=== PATIENT | male | born 1980 | race Caucasian/White ===

== ENCOUNTER → 2016-10-24 | Outpatient (CLI) | payer OTHER, MEDICAID ==
--- NOTE | 2016-10-24 18:34 | DX ---
AP Supine Abdomen Reason for Examination: Follow up renal stones, comparison April 05, 2016. Findings: Calcifications project over the lower poles of the kidneys bilaterally, not significantly changed. The bowel gas pattern is normal. No free air is identified on this supine study. Moderat e fecal material is seen scattered throughout the colon. No small bowel dilatation is identified. O sseous structures are negative for acute abnormality. Impression: Nephrolithiasis, not significantly changed.
== END ==
LOC: FIMAGING 12:34
DX: N20.0 Calculus of kidney (principal)

== ENCOUNTER 2017-05-07 18:10 | Emergency (ER) | payer OTHER, MEDICAID ==
[2017-05-07 18:22] VITALS: PULSE 77; TEMP 98.1
--- NOTE | 2017-05-07 19:40 | EDPHY ---
H & P Stated Complaint: L GREAT TOE /INGROWN NAIL HAS APPT WITH PODIATRY ON FRIDAY Source: Patient Exam Limitations: No limitations - Personal History Current Tetanus/Diphtheria Vaccine: Yes - Medical/Surgical History Hx Asthma: No Hx Chronic Respiratory Disease: No Hx Diabetes: No Hx Cardiac Disease: No Hx Renal Disease: No Hx Cirrhosis: No Hx Alcoholism: No Hx HIV/AIDS: No Hx Splenectomy or Spleen Trauma: No Other PMH: QUAD, SEPSIS 2009, UTI- PSEUDOMONAS 06/28,. Kidney stones, C. difficile, DVT, neurogenic bladder with chronic hawkins/DVT - Social History Smoking Status: Light smoker HPI/ROS: CHIEF COMPLAINT: Ingrown toenail HISTORY OF PRESENT ILLNESS: Patient complains of 2 days history of redness and swelling of the left great toe. Complete spinal cord injury from T10 down since 2009, thus he has no sensory complaints. He does have some purulence started yesterday. His home health nurse noticed this today and recommended that he be seen for this. He has an appointment on Friday with a paint department supervisor, but presents here for antibiotics as they could not see him any sooner. No fever or systemic complaints. No modifying factors. No other associated complaints. Tetanus up- to-date. REVIEW OF SYSTEMS: Ten systems reviewed and are negative unless otherwise noted in the HPI EXAMINATION General Appearance: Alert, no distress Cardiovascular: Pulses normal throughout. Symmetric DP pulses 2+. Brisk cap refill Neurological: A&O, baseline sensory with CSI at T10. strength symmetric Skin: Warm and dry, no rash. Superficial erythema with mild purulence of the left great toenail. Consistent with ingrown toenail. No phelon or paronychia. Extremities: baseline ROM Psychiatric: Mood and affect normal DIFFERENTIAL DIAGNOSES: Including but not limited to ingrown toenail, phelon, abscess, cellulitis, paronychia MDM: 7:35 p.m. Mild ingrown toenail on the left side. No cellulitis of the foot of the toe. No paronychia. No systemic illness. I will place him on antibiotic treatment. He has an appointment with a paint department supervisor on Friday for definitive care. He is comfortable this plan and discharged home stable condition. ED precautions discussed. ED Precautions: Worsening pain. Erythema, edema, cyanosis, pallor, paresthesia or anesthesia. SUPERVISION: This patient was independently evaluated without direct examination by the attending physician. Case was discussed with attending physician. (Ac Woo) Constitutional: Initial Vital Signs Temperature (C) 36.7 C 05/07/17 18:19 Heart Rate 77 05/07/17 18:19 Respiratory Rate 18 05/07/17 18:19 Blood Pressure 96/73 L 05/07/17 18:19 O2 Sat (%) 96 05/07/17 18:19 O2 Delivery Mode Room Air Allergies/Adverse Reactions: ceftazidime Allergy (Severe, Verified 05/07/17 18:18) Other-Enter Comments UNKNOWN ABX Allergy (Uncoded 05/07/17 18:18) Home Medications: Medication Instructions Recorded Baclofen [Baclofen 10 mg (*)] 10 mg PO QID 07/21/14 Docusate Sodium 100 mg PO HS 07/21/14 QUEtiapine FUMARATE [Seroquel 50 50 mg PO BID 07/21/14 mg (*)] Sertraline HCl [Zoloft 100mg (*)] 100 mg PO DAILY 07/21/14 Furosemide [Lasix 20 MG (*)] 20 mg PO DAILY 30 Days 11/25/14 Ascorbic Acid [Vitamin C 500 mg 500 mg PO BIDMEAL 06/08/15 (*)] Bisacodyl [Magic Bullet 10 mg] 10 mg [place] DAILY 06/08/15 Dimethicone [Remedy Dimethicone] 1 herman TP TID PRN 06/08/15 Loratadine/Pseudoephedrine 1 each PO DAILY PRN 06/08/15 [Claritin-D 24 Hour Tablet] Amoxicillin/Clavulanate Pot 875 mg PO BID #20 tab 05/07/17 [Augmentin 875 MG TAB (*)] Medical Decision Making ED Course/Re-evaluation: The patient was evaluated and managed by the physician psychology assistant. I have reviewed this chart and I agree with the findings and plan of care as documented , as indicated by my signature. I am the secondary supervising physician. ( Marilyn Garcia) Departure - Departure Disposition: Home, Routine, Self-Care Clinical Impression: Ingrown toenail Condition: Good Instructions: Ingrown Nail (ED) Additional Instructions: 1. Medications as prescribed to completion 2. Keep your appointment on Friday with paint department supervisor for definitive care 3. ER precautions as discussed Referrals: Ashlyn De La Rosa MD [Primary Care Provider] - As per Instructions Prescriptions: Amoxicillin/Clavulanate Pot [Augmentin 875 MG TAB (*)] 875 mg PO BID #20 tab
[2017-05-07 19:51] VITALS: BP 99/64; RESP 16; O2SAT 94
== END 2017-05-07 19:53 | disposition home or self-care (01) ==
DX: L60.0 Ingrowing nail (principal); F17.200 Nicotine dependence, unspecified, uncomplicated

== ENCOUNTER 2017-10-26 19:57 | Emergency (ER) | payer OTHER, MEDICAID ==
[2017-10-26] MEDS ORDERED: HYDROmorphONE/DILAUDID 1 MG/ML INJ ONE (21:27)
[2017-10-26 21:28] LABS: PLATELET COUNT 211 10^3/uL (150-400)
[2017-10-26] MEDS ORDERED: HYDROmorphONE/DILAUDID 1 MG/ML INJ IVP ONE ×2 (21:29→23:41)
[2017-10-26] MEDS ORDERED: ONDANSETRON 4 MG/2 ML VIAL ONE (21:34)
[2017-10-26] MEDS ORDERED: ONDANSETRON 4 MG/2 ML VIAL IVP ONE (21:36)
[2017-10-26] MEDS ORDERED: IOPAMIDOL (ISOVUE 370) 100 ML BTL IV ONE (21:52)
--- NOTE | 2017-10-26 22:59 | EDPHY ---
H & P Smoking Status: Former smoker Time Seen by Provider: 10/26/17 20:56 HPI/ROS: CHIEF COMPLAINT: Headache HISTORY OF PRESENT ILLNESS: 37-year-old male with a history of quadriplegia presents to the emergency department with sudden onset of severe headache that began 6 days ago. The patient states that it was rather of abrupt in onset although has been gradually getting worse. It is severe. He has no history of headaches. No reported trauma. No chest pain or difficulty breathing. Denies neck pain. Denies visual changes. No nausea or vomiting. REVIEW OF SYSTEMS: Constitutional: No fever, no chills. Eyes: No double or blurry vision. ENT: No sore throat. Respiratory: No cough, no shortness of breath. Cardiac: No chest pain. Gastrointestinal: No abdominal pain, vomiting or diarrhea. Genitourinary: No dysuria. Musculoskeletal: No neck or back pain. Skin: No rashes. Neurological: headache. (Shayy Tracey) Past Medical/Surgical History: C5-C6 quadriplegic, history of sepsis in 2009, urinary tract infections and neurogenic bladder with indwelling suprapubic catheter, C diff 2010, DVT with Luis Angel filters (Shayy Tracey) Social History: Single and lives independently (Shayy Tracey) Physical Exam: General Appearance: Alert, no distress. Mentating normally and answering questions appropriately. Eyes: Pupils equal and round. Extraocular motions are all intact. ENT: Mouth: Mucous membranes moist. Respiratory: No wheezing, rhonchi, or rales, lungs are clear to auscultation. Cardiovascular: Regular rate and rhythm. Gastrointestinal: Abdomen is soft and nontender, no masses, no rebound or guarding, bowel sounds normal. Neurological: Patient is alert and oriented x3. 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 He has no sensation or mobility of the lower extremities. Skin: Warm and dry, no rashes. Musculoskeletal: Nontender to palpate along the cervical, thoracic or lumbar spine. Neck is supple. Extremities: Full range of motion and no peripheral edema. Psychiatric: Patient is oriented X 3, there is no agitation. (Shayy Tracey) Constitutional: Initial Vital Signs Temperature (C) 36.9 C 10/26/17 20:01 Heart Rate 54 L 02/11/18 20:01 Respiratory Rate 18 10/26/17 20:01 Blood Pressure 148/93 H 10/26/17 20:01 O2 Sat (%) 95 10/26/17 20:01 O2 Delivery Mode Room Air O2 (L/minute) 2 Allergies/Adverse Reactions: ceftazidime Allergy (Severe, Verified 10/26/17 20:06) Other-Enter Comments UNKNOWN ABX Allergy (Uncoded 05/07/17 18:18) Home Medications: Medication Instructions Recorded Baclofen [Baclofen 10 mg (*)] 10 mg PO QID 07/21/14 Docusate Sodium 100 mg PO HS 07/21/14 QUEtiapine FUMARATE [Seroquel 50 50 mg PO BID 07/21/14 mg (*)] Sertraline HCl [Zoloft 100mg (*)] 100 mg PO DAILY 07/21/14 Furosemide [Lasix 20 MG (*)] 20 mg PO DAILY 30 Days tab 11/25/14 Ascorbic Acid [Vitamin C 500 mg 500 mg PO BIDMEAL 06/08/15 (*)] Bisacodyl [Magic Bullet 10 mg] 10 mg [place] DAILY 06/08/15 Dimethicone [Remedy Dimethicone] 1 herman TP TID PRN 06/08/15 Loratadine/Pseudoephedrine 1 each PO DAILY PRN 06/08/15 [Claritin-D 24 Hour Tablet] Medical Decision Making - Diagnostics Imaging: Discussed imaging studies w/ call or contact centre team leader Radiologist - Diagnostics Imaging Results: Imaging Impressions Head CT 10/26/17 21:35 Impression: Normal. CT Angiogram of the Brain Clinical Indications: Severe headache, quadriplegic. Evaluate for aneurysm . Technique: CT angiogram of the brain was performed with the uneventful intravenous administration of 85 mL Isovue-370 contrast. Multiplanar reconstructions including 3D reconstructions performed and evaluated on [employer] workstation in order to better evaluate the cheesh-na of [place] vessels. Images were manipulated by the radiologist at the computer workstation. Dose reduction techniques were utilized. Findings: Major vessels of the cheesh-na of [place] are adequately displayed, demonstrating no evidence of aneurysm, vascular malformation, flow-limiting stenosis, or occlusion. Bilateral cavernous internal carotid arteries and vertebrobasilar system demonstrates no evidence of flow-limiting stenosis, aneurysm, occlusion or dissection. Superior sagittal sinus, transverse sinuses, and major veins demonstrate no evidence of intraluminal thrombi. Impression: Negative CT angiogram of the brain. Results called and discussed with Shayy Tracey PA-C at 10/26/2017 22:55. Head CTA 10/26/17 21:35 Impression: Normal. CT Angiogram of the Brain Clinical Indications: Severe headache, quadriplegic. Evaluate for aneurysm . Technique: CT angiogram of the brain was performed with the uneventful intravenous administration of 85 mL Isovue-370 contrast. Multiplanar reconstructions including 3D reconstructions performed and evaluated on [employer] workstation in order to better evaluate the cheesh-na of [place] vessels. Images were manipulated by the radiologist at the computer workstation. Dose reduction techniques were utilized. Findings: Major vessels of the cheesh-na of [place] are adequately displayed, demonstrating no evidence of aneurysm, vascular malformation, flow-limiting stenosis, or occlusion. Bilateral cavernous internal carotid arteries and vertebrobasilar system demonstrates no evidence of flow-limiting stenosis, aneurysm, occlusion or dissection. Superior sagittal sinus, transverse sinuses, and major veins demonstrate no evidence of intraluminal thrombi. Impression: Negative CT angiogram of the brain. Results called and discussed with Shayy Tracey PA-C at 10/26/2017 22:55. ED Course/Re-evaluation: I evaluated this patient at 10:50 p.m.. This time he appeared comfortable. He was watching TV. He is not seem to be in any distress. His neck is supple. He does not have significant pain on flexion of his neck. He describes his headache as gradual in onset but escalating in intensity. He very specifically denied a thunderclap headache with maximum intensity at onset. I discussed doing a lumbar puncture. I described the procedure. He declines this procedure at this time. He has a negative CT noncontrast of the brain and a negative CTA of the brain. Please see physician assistant engineer Shayy Joe's dictation for further details regarding history and remaining emergency department course. (Azam Aguilar) The case was discussed with Dr. Azam Aguilar, secondary supervising physician, who also evaluated the patient. CT scan of the brain as well as CTA of the brain was normal. Patient received initially IV Dilaudid and was given IV Toradol and IV Decadron. Upon discharge, 12:30 a.m.: Patient was feeling much better. Headache has resolved. He would like to be discharged home. Patient was instructed to return to the emergency department immediately if he had any change in symptoms or felt worse in any way. (Shayy Tracey) Differential Diagnosis: Headache including but not limited to subarachnoid hemorrhage, migraine headache , tension headache and infectious causes such as meningitis, pharyngitis and sinusitis. (Shayy Tracey) - Data Points Laboratory Results: Laboratory Results 10/26/17 21:15 10/26/17 21:15 10/26/17 10/26/17 10/26/17 21:15 21:15 21:14 WBC 6.55 10^3/uL 10^3/uL (3.80-9.50) RBC 4.87 10^6/uL 10^6/uL (4.40-6.38) Hgb 13.6 g/dL L g/dL (13.7-17.5) POC Hgb 13.3 gm/dL L gm/dL (13.7-17.5) Hct 41.2 % % (40.0-51.0) POC Hct 39 % L % (40-51) MCV 84.6 fL fL (81.5-99.8) MCH 27.9 pg pg (27.9-34.1) MCHC 33.0 g/dL g/dL (32.4-36.7) RDW 15.4 % H % (11.5-15.2) Plt Count 211 10^3/uL 10^3/uL (150-400) MPV 10.0 fL fL (8.7-11.7) Neut % (Auto) 45.8 % % (39.3-74.2) Lymph % (Auto) 45.8 % H % (15.0-45.0) [place] % (Auto) 6.0 % % (4.5-13.0) Eos % (Auto) 2.0 % % (0.6-7.6) Baso % (Auto) 0.2 % L % (0.3-1.7) Nucleat RBC Rel Count 0.0 % % (0.0-0.2) Absolute Neuts (auto) 3.01 10^3/uL 10^3/uL (1.70-6.50) Absolute Lymphs (auto) 3.00 10^3/uL 10^3/uL (1.00-3.00) Absolute Monos (auto) 0.39 10^3/uL 10^3/uL (0.30-0.80) Absolute Eos (auto) 0.13 10^3/uL 10^3/uL (0.03-0.40) Absolute Basos (auto) 0.01 10^3/uL L 10^3/uL (0.02-0.10) Absolute Nucleated RBC 0.00 10^3/uL 10^3/uL (0-0.01) Immature Gran % 0.2 % % (0.0-1.1) Immature Gran # 0.01 10^3/uL 10^3/uL (0.00-0.10) POC Sodium 144 mEq/L mEq/L (135-145) Sodium 143 mEq/L mEq/L (135-145) POC Potassium 3.8 mEq/L mEq/L (3.3-5.0) Potassium 4.1 mEq/L mEq/L (3.5-5.2) POC Chloride 104 mEq/L mEq/L (97-110) Chloride 107 mEq/L mEq/L (97-110) Carbon Dioxide 24 mEq/l mEq/l (22-31) Anion Gap 12 mEq/L mEq/L (8-16) POC BUN 10 mg/dL mg/dL (7-23) BUN 11 mg/dL mg/dL (7-23) Creatinine 0.5 mg/dL L mg/dL (0.7-1.3) POC Creatinine 0.6 mg/dL L mg/dL (0.7-1.3) Estimated GFR > 60 Glucose 90 mg/dL mg/dL (70-100) POC Glucose 92 mg/dL mg/dL (70-100) Calcium 9.3 mg/dL mg/dL (8.5-10.4) Medications Given: Discontinued Medications Dexamethasone (Decadron Injection) 10 mg IVP EDNOW ONE Stop: 10/26/17 23:04 Last Admin: 10/26/17 23:22 Dose: 10 mg Hydromorphone HCl (Dilaudid) 0.5 mg IVP EDNOW ONE Stop: 10/26/17 21:30 Last Admin: 10/26/17 21:30 Dose: 0.5 mg Hydromorphone HCl (Dilaudid) 0.5 mg IVP EDNOW ONE Stop: 10/26/17 23:42 Last Admin: 10/27/17 00:04 Dose: 0.5 mg Ketorolac Tromethamine (Toradol) 30 mg IVP EDNOW ONE Stop: 10/26/17 23:04 Last Admin: 10/26/17 23:21 Dose: 30 mg Ondansetron HCl (Zofran) 4 mg IVP EDNOW ONE Stop: 10/26/17 21:37 Last Admin: 10/26/17 21:37 Dose: 4 mg Point of Care Test Results: 10/26/17 21:14 POC Sodium 144 POC Potassium 3.8 POC Chloride 104 POC BUN 10 POC Creatinine 0.6 L POC Glucose 92 Departure - Departure Disposition: Home, Routine, Self-Care Clinical Impression: Headache Qualifiers: Headache type: unspecified Headache chronicity pattern: acute headache Intractability: not intractable Qualified Code(s): R51 - Headache Condition: Good Instructions: Acute Headache (ED) Additional Instructions: Return to the emergency department immediately if you develop worsening headache , vomiting, altered mental status, or if you feel worse in any way. Referrals: Ashlyn De La Rosa MD [Primary Care Provider] - As per Instructions
[2017-10-26] MEDS ORDERED: KETOROLAC 30 MG/1 ML SDV IVP ONE (23:03)
[2017-10-26] MEDS ORDERED: DEXAMETHASONE 10 MG/ML VIAL IVP ONE (23:03)
[2017-10-27 00:58] VITALS: BP 111/72; PULSE 64; RESP 18; TEMP 97.9; O2SAT 96
== END 2017-10-27 00:57 | disposition home or self-care (01) ==
DX: R51 Headache (principal); Z87.891 Personal history of nicotine dependence
CPT/HCPCS: 70450; 70496; 96374; 96375; 96376; 99285; J1100; J1170; J1885; J2405; Q9967; 82947-QW

== ENCOUNTER 2017-10-29 11:49 | Emergency (ER) | payer OTHER, MEDICAID ==
--- NOTE | 2017-10-29 12:20 | EDPHY ---
H & P Stated Complaint: benoit x 1 week/seen in ed 10/26 pcp yesterday/not resolved Time Seen by Provider: 10/29/17 12:19 HPI/ROS: HPI: This is a 37-year-old male who presents with Chief Complaint: benoit x 1 week/seen in ed 10/26 pcp yesterday/not resolved Location: Behind both eyes Quality: Pressure Duration: 1 week Signs and Symptoms: no fever, no nausea, no vomiting, no photophobia, no noise sensitivity, no neck stiffness, no ear pain, no tinnitus, no nasal congestion, no sinus pressure, no weakness, no radiation, no vision changes, no aura Timing: Waxes and wane Severity: [id number] Context: Patient has a history of C5/C6 quadriplegia presents with complaints of continued pressure behind both eyes that is not relieved by the amitriptyline that he started last night by his primary care provider. Patient was seen in this emergency room on 10/26/2017 for similar complaints. Head CT and head CTA performed that showed no acute intracranial process including no sinusitis/aneurysm/infarct/mass. Patient reports that he had his eyes examined last year and wears glasses. He denies any nasal congestion/rhinorrhea/fever. He is able to sleep at night without difficulty. He is on chronic muscle relaxers due to his paraplegia. He saw his primary care doctor yesterday and will be seen by Neurology next week. Reports he is unable to feel anything from his neck down to his feet. Right-hand dominant. Modifying Factors: See above Comment: ROS: see HPI Constitutional: No fever, no chills, no weight loss Eyes: No blurred vision Respiratory: No shortness of breath, no cough Cardiovascular: No chest pain, no palpitations Gastrointestinal: No nausea, no vomiting, no diarrhea, no hematemesis, no blood in stool Genitourinary: No dysuria, no blood in urine Extremities: No myalgias, no edema Neurologic: No weakness, no numbness Skin: No rashes, no petechiae Hematologic: No bruising, no bleeding MEDICAL/SURGICAL/SOCIAL HISTORY: Medical history: c5-c6 QUAD, SEPSIS 2009, UTI- PSEUDOMONAS 06/28, Kidney stones , C. difficile - 2009, DVT, neurogenic bladder with chronic Hawkins Social history: Disabled. CONSTITUTIONAL: Extremely well-appearing adult white male, awake and alert, no obvious distress HEENT: Atraumatic and normocephalic, PERRL, EOMI. Wears glasses. Tympanic membranes clear. Oropharynx clear, no exudate and moist pink mucosa. Airway patent. No lymphadenopathy. No meningismus. Cardiovascular: Normal S1/S2, regular rate, regular rhythm, without murmur rub or gallop. PULMONARY/CHEST: Symmetrical and nontender. Clear to auscultation bilaterally. Good air movement. No accessory muscle usage. ABDOMEN: Soft, nondistended, nontender, no rebound, no guarding, no peritoneal signs, no masses or organomegaly. No CVAT. EXTREMITIES: 2/2 pulses, upper extremities strength 5/5, C5-C6 plegia; sitting in a motorized wheelchair. Wearing gloves. NEUROLOGICAL: no focal neuro deficits. GCS 15. SKIN: Warm and dry, no erythema. no rash. Good capillary refill. Source: Patient Exam Limitations: No limitations - Personal History Current Tetanus/Diphtheria Vaccine: Unsure - Medical/Surgical History Hx Asthma: No Hx Chronic Respiratory Disease: No Hx Diabetes: No Hx Cardiac Disease: No Hx Renal Disease: No Hx Cirrhosis: No Hx Alcoholism: No Hx HIV/AIDS: No Hx Splenectomy or Spleen Trauma: No Other PMH: c5-c6 QUAD, SEPSIS 2009, UTI- PSEUDOMONAS 06/28,. Kidney stones, C. difficile - 2009, DVT, neurogenic bladder with chronic hawkins - Social History Smoking Status: Former smoker Constitutional: Initial Vital Signs Temperature (C) 37 C 10/29/17 11:53 Heart Rate 84 10/29/17 11:53 Respiratory Rate 16 10/29/17 11:53 Blood Pressure 119/61 10/29/17 11:53 O2 Sat (%) 94 10/29/17 11:53 O2 Delivery Mode Room Air O2 (L/minute) 2 Allergies/Adverse Reactions: ceftazidime Allergy (Severe, Verified 10/29/17 11:52) Other-Enter Comments UNKNOWN ABX Allergy (Uncoded 05/07/17 18:18) Home Medications: Medication Instructions Recorded Baclofen [Baclofen 10 mg (*)] 10 mg PO QID 07/21/14 Docusate Sodium 100 mg PO HS 07/21/14 QUEtiapine FUMARATE [Seroquel 50 50 mg PO BID 07/21/14 mg (*)] Sertraline HCl [Zoloft 100mg (*)] 100 mg PO DAILY 07/21/14 Furosemide [Lasix 20 MG (*)] 20 mg PO DAILY 30 Days tab 11/25/14 Ascorbic Acid [Vitamin C 500 mg 500 mg PO BIDMEAL 06/08/15 (*)] Bisacodyl [Magic Bullet 10 mg] 10 mg [place] DAILY 06/08/15 Dimethicone [Remedy Dimethicone] 1 herman TP TID PRN 06/08/15 Loratadine/Pseudoephedrine 1 each PO DAILY PRN 06/08/15 [Claritin-D 24 Hour Tablet] Acet/Caffeine/Buta Fioricet 1 each PO Q6 PRN #12 tab 10/29/17 [Fioricet (*)] Amitriptyline HCl 10/29/17 Medical Decision Making - Diagnostics Imaging Results: Imaging Impressions Brain MRI 10/29/17 12:30 Impression: Nonspecific white matter FLAIR hyperintensities, which could be related to multiple sclerosis, sequela of migraine, vasculitis, or other etiology. Findings discussed with Kayley Maxwell PA-C, on October 29, 2017 at 1455. ED Course/Re-evaluation: Patient is requesting MRI of his brain; will order this due to continued headache. No neurological deficit. Given IV Decadron and IV Haldol with adequate relief 1400: Reassessed patient. Sitting upright in bed and sleeping soundly Called by radiologist who advised MRI shows no acute intracranial process. Does show some mild white matter changes consistent with migraine. Reassessed patient who reports that headache has completely resolved. Appointment with Neurology on Friday. He is very relieved of his MRI results. This patient was seen under the supervision of my secondary supervising physician. I evaluated care for this patient independently. Discussed this patient with Dr. Aguilar who did not see the patient. Differential Diagnosis: Headache including but not limited to subarachnoid hemorrhage, migraine headache , tension headache and infectious causes such as meningitis, pharyngitis and sinusitis. - Data Points Medications Given: Discontinued Medications Dexamethasone (Decadron Injection) 8 mg IVP EDNOW ONE Stop: 10/29/17 12:31 Last Admin: 10/29/17 13:30 Dose: 8 mg Haloperidol Lactate (Haldol Injection) 2.5 mg IVP EDNOW ONE Stop: 10/29/17 12:31 Last Admin: 10/29/17 13:30 Dose: 2.5 mg Lorazepam (Ativan Injection) 1 mg IVP EDNOW ONE Stop: 10/29/17 13:13 Last Admin: 10/29/17 13:43 Dose: 1 mg Departure - Departure Disposition: Home, Routine, Self-Care Clinical Impression: Migraine without aura Qualifiers: Status migrainosus presence: without status migrainosus Intractability: not intractable Qualified Code(s): G43.009 - Migraine without aura, not intractable , without status migrainosus Condition: Good Instructions: Migraine Headache (ED) Additional Instructions: Keep your follow-up appointment on Friday with Neurology as already scheduled. Use for Fioricet every 4-6 hours as needed for migraine headache. Drink a minimum 64 oz of fluid daily. Rest as much as possible until you are feeling better. Wear sunglasses while out in the sun. Referrals: PCP Not In,Dictionary [Medical Doctor] - As per Instructions Prescriptions: Acet/Caffeine/Buta Fioricet [Fioricet (*)] 1 each PO Q6 PRN #12 tab PRN Reason: Headache
[2017-10-29] MEDS ORDERED: HALOPERIDOL LACT 5 MG/ML INJ IVP ONE (12:30)
[2017-10-29] MEDS ORDERED: DEXAMETHASONE 4 MG/ML VIAL IVP ONE (12:30)
[2017-10-29] MEDS ORDERED: LORazepam 2 MG/ML INJ IVP ONE (13:12)
[2017-10-29 15:00] VITALS: RESP 18
[2017-10-29 16:09] VITALS: BP 150/89; PULSE 83; TEMP 98.8; O2SAT 92
== END 2017-10-29 16:33 | disposition home or self-care (01) ==
DX: G43.009 Migraine without aura, not intractable, without status migrainosus (principal); Z87.891 Personal history of nicotine dependence
CPT/HCPCS: 70551; 96374; 96375; 99285; J1100; J1630; J2060

== ENCOUNTER 2017-11-03 14:56 | Emergency (ER) | payer OTHER, MEDICAID ==
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
[2017-11-03] MEDS ORDERED: KETOROLAC 15 MG/1 ML SDV IVP/IM ONE (16:55)
[2017-11-03] MEDS ORDERED: NS 1,000 ML IV ONE (16:55)
[2017-11-03] MEDS ORDERED: DEXAMETHASONE 4 MG/ML VIAL IVP ONE (16:55)
[2017-11-03] MEDS ORDERED: HALOPERIDOL LACT 5 MG/ML INJ IVP ONE (16:55)
[2017-11-03 17:01] LABS: PLATELET COUNT 211 10^3/uL (150-400)
[2017-11-03 17:07] VITALS: RESP 12
[2017-11-03] MEDS ORDERED: IOPAMIDOL (ISOVUE 370) 100 ML BTL IV ONE (17:27)
[2017-11-03] MEDS ORDERED: METOCLOPRAMIDE 10 MG/2 ML VIAL IVP ONE (18:12)
[2017-11-03] MEDS ORDERED: DIAZEPAM 5 MG/ML 1 ML SYR IVP ONE (18:12)
[2017-11-03 19:33] VITALS: BP 153/94; PULSE 73; TEMP 98.6; O2SAT 94
== END 2017-11-03 20:07 | disposition home or self-care (01) ==
DX: G44.89 Other headache syndrome (principal); Z87.891 Personal history of nicotine dependence
CPT/HCPCS: 70498; 96374; 96375; 99285; J1100; J1630; J1885; J2765; J3360; Q9967

== ENCOUNTER 2017-12-31 16:09 | Inpatient (IN) | payer OTHER, MEDICAID ==
--- NOTE | 2017-12-31 16:47 | EDPHY ---
H & P Stated Complaint: Left leg DVT, sent by PCP. Time Seen by Provider: 12/31/17 16:30 HPI/ROS: CHIEF COMPLAINT: Left leg swelling, diagnosed with DVT as outpatient HISTORY OF PRESENT ILLNESS: The patient has a history of quadriplegia of from prior cervical injury. He presents to the ED after he was evaluated at his primary care provider's office with complaints of left leg swelling. The patient did have a prior history of DVT. He currently has a [place] filter. He is not anticoagulated. He has required thrombolytics therapy for management of thromboembolic events in the past. The patient has no sensation in his lower extremities chronically. He is wheelchair-bound. He denies any chest pain or shortness of breath. REVIEW OF SYSTEMS: A comprehensive 10 point review of systems is otherwise negative aside from elements mentioned in the history of present illness. Source: Patient Exam Limitations: No limitations - Personal History Current Tetanus Diphtheria and Acellular Pertussis (TDAP): Yes - Medical/Surgical History Hx Asthma: No Hx Chronic Respiratory Disease: No Hx Diabetes: No Hx Cardiac Disease: No Hx Renal Disease: No Hx Cirrhosis: No Hx Alcoholism: No Hx HIV/AIDS: No Hx Splenectomy or Spleen Trauma: No Other PMH: c5-c6 QUAD, SEPSIS 2009, UTI- PSEUDOMONAS 06/28,. Kidney stones, C. difficile - 2009, DVT, neurogenic bladder with chronic hawkins. IVC filter 2009. - Social History Smoking Status: Former smoker - Physical Exam Exam: General Appearance: Alert, no distress Eyes: Pupils equal and round no pallor or injection ENT, Mouth: Mucous membranes moist Respiratory: There are no retractions, lungs are clear to auscultation Cardiovascular: Regular rate and rhythm Gastrointestinal: Abdomen is soft and nontender, no masses, bowel sounds normal Neurological: Chronic upper and lower extremity weakness secondary to cervical spine injury Skin: Warm and dry, no rashes Musculoskeletal: Neck is supple nontender Extremities: Asymmetric swelling noted in the left leg, normal capillary refill , 2+ dorsalis pedis and posterior tibial pulse noted Constitutional: Initial Vital Signs Temperature (C) 36.5 C 12/31/17 16:15 Heart Rate 78 12/31/17 16:15 Respiratory Rate 16 12/31/17 16:15 Blood Pressure 100/70 12/31/17 16:15 O2 Sat (%) 98 12/31/17 16:15 O2 Delivery Mode Room Air Allergies/Adverse Reactions: ceftazidime Allergy (Severe, Verified 10/29/17 11:52) Other-Enter Comments UNKNOWN ABX Allergy (Uncoded 05/07/17 18:18) Home Medications: Medication Instructions Recorded Baclofen [Baclofen 10 mg (*)] 10 mg PO QID 07/21/14 Docusate Sodium 100 mg PO HS 07/21/14 QUEtiapine FUMARATE [Seroquel 50 50 mg PO BID 07/21/14 mg (*)] Sertraline HCl [Zoloft 100mg (*)] 100 mg PO DAILY 07/21/14 Furosemide [Lasix 20 MG (*)] 20 mg PO DAILY 30 Days tab 11/25/14 Ascorbic Acid [Vitamin C 500 mg 500 mg PO BIDMEAL 06/08/15 (*)] Bisacodyl [Magic Bullet 10 mg] 10 mg [place] DAILY 06/08/15 Dimethicone [Remedy Dimethicone] 1 herman TP TID PRN 06/08/15 Loratadine/Pseudoephedrine 1 each PO DAILY PRN 06/08/15 [Claritin-D 24 Hour Tablet] Acet/Caffeine/Buta Fioricet 1 each PO Q6 PRN #12 tab 10/29/17 [Fioricet (*)] Amitriptyline HCl 10/29/17 methylPREDNISolone [Medrol Dose 4 mg PO DAILY #1 ea 11/03/17 [facility]] Medical Decision Making - Diagnostics Imaging Results: Imaging Impressions Abdomen CT 12/31/17 17:01 Impression: 1. There is intraluminal thrombus involving the upper left common iliac vein ( at the level of a vascular stent), and extending into the IVC to the level of the IVC filter (L2-L3 level). There is no extrinsic mass identified. 2. Bilateral nonobstructive nephrolithiasis with areas of regional renal cortical scarring, right kidney greater than left. 3. Suprapubic cystostomy catheter. Findings were discussed with Chris Arriola MD at 18:11, on 12/31/2017. ED Course/Re-evaluation: I reviewed the patient's outpatient ultrasound. At that a recommendation of the radiologist a CT scan of the abdomen pelvis has been ordered which does demonstrate recurrent extensive clot noted throughout the IVC inferior to the filter. I reviewed the patient's CT scan with interventional radiologist Dr. Tena who would like to evaluate the patient for likely thrombolysis tomorrow. She has requested the patient be admitted for IV heparin and be made NPO after midnight. Consultation was made with the hospitalist service for admission. I spoke with Dr. Bourgeois from the hospitalist service who will admit the patient. Differential Diagnosis: Differential diagnosis considered includes DVT, arterial thrombosis, compartment syndrome Departure - Departure Disposition: [facility] Inpatient Acute Clinical Impression: DVT (deep venous thrombosis), Paraplegia Condition: Fair Referrals: Ashlyn De La Rosa MD [Primary Care Provider] - As per Instructions
[2017-12-31] MEDS ORDERED: IOPAMIDOL (ISOVUE-300) 100 ML BTL ONE (17:16)
[2017-12-31] MEDS ORDERED: HEPARIN/DEXTROSE 500 ML IV ONE (18:26)
[2017-12-31] MEDS ORDERED: HEPARIN 10,000 UNIT/10 ML MDV (1,000 UNIT/ML) IVP ONE (18:26)
[2017-12-31] MEDS ORDERED: ACETAMINOPHEN 325 MG TAB PO PRN (18:42)
[2017-12-31] MEDS ORDERED: ONDANSETRON DISINTEGRATING 4 MG TAB PO PRN (18:42)
[2017-12-31] MEDS ORDERED: HEPARIN/DEXTROSE 500 ML IV SCH (18:45)
[2017-12-31] MEDS: HEPARIN 10,000 UNIT/10 ML MDV (1,000 UNIT/ML) IVP PRN (18:48)
--- NOTE | 2017-12-31 18:50 | PDGENHP ---
History and Physical - Chief Complaint left leg swelling - History of Present Illness The patient has a history of long standing quadriplegia from prior cervical injury. He presents after he was evaluated at his primary care provider's office with complaints of left leg swelling. The patient did have a prior history of DVT. He currently has a [place] filter. He is not anticoagulated. He has required thrombolytics therapy for management of thromboembolic events in the past. The patient has no sensation in his lower extremities chronically. He is wheelchair-bound. He denies any chest pain or shortness of breath. An ultrasound of the left Lower extremity showed significant clotting. A CT Abd and Pelvis was recommended and this shows clot extending from the common iliac vein and extending into the IVC. The E.D. room called Dr. Tena and Heparin has been started. He is being admitted for anticoagulation and for likely thrombolysis with Dr. Tena tomorrw. PMH: c5-c6 QUAD, SEPSIS 2009, UTI- PSEUDOMONAS 06/28,. Kidney stones, C. difficile - 2009, DVT, neurogenic bladder with chronic suprapubic hawkins. IVC filter 2009. PSHx: suprapubic hawkins SocHx:no tobacco, ETOH, or illicits FmHx: non hx of clots Data: CBC and BMP reviewed, obtained today LLE Ultrasound and CT abd/pelvis reviewed History Information - Allergies/Home Medication List Allergies/Adverse Reactions: ceftazidime Allergy (Severe, Verified 10/29/17 11:52) Other-Enter Comments UNKNOWN ABX Allergy (Uncoded 05/07/17 18:18) Home Medications: Baclofen [Baclofen 10 mg (*)] 10 mg PO QID 07/21/14 [Last Taken 12/31/17 18:00] Docusate Sodium 100 mg PO HS 07/21/14 [Last Taken 12/30/17] QUEtiapine FUMARATE [Seroquel 50 mg (*)] 50 mg PO BID 07/21/14 [Last Taken 12/31 09:00] Sertraline HCl [Zoloft 100mg (*)] 100 mg PO DAILY 07/21/14 [Last Taken 12/31/17] Ascorbic Acid [Vitamin C 500 mg (*)] 1,000 mg PO DAILY 06/08/15 [Last Taken ] Bisacodyl [Magic Bullet 10 mg] 10 mg OR DAILY 06/08/15 [Last Taken 12/31/17] Dimethicone [Remedy Dimethicone] 1 herman TP TID PRN 06/08/15 [Last Taken 12/30/17] Loratadine/Pseudoephedrine [Claritin-D 24 Hour Tablet] 1 each PO DAILY PRN 06/08 [Last Taken 12/31/17] Amitriptyline HCl [Elavil 10 mg (*)] 10 mg PO HS 10/29/17 [Last Taken 12/30/17] Codeine Phosphate/Guaifenesin [Robafen AC Oral Solution] 10 ml PO Q4H PRN [Last Taken 12/31/17] Herbals/Supplements -Info Only 1 ea PO DAILY 12/31/17 [Last Taken 12/31/17] Naproxen 500 mg PO BID PRN 12/31/17 [Last Taken 1 Week Ago ~12/24/17] I have personally reviewed and updated: medical history, social history - Social History Smoking Status: Former smoker Review of Systems Review of Systems: ROS: 10pt was reviewed & negative except for what was stated in HPI & below Physical Exam Physical Exam: Temp Pulse Resp BP Pulse Ox 36.5 C 67 18 126/80 H 97 12/31/17 16:15 12/31/17 18:00 12/31/17 18:00 12/31/17 18:00 12/31/17 18:00 Constitutional: no apparent distress Eyes: PERRL, EOMI Ears, Nose, Mouth, Throat: moist mucous membranes, hearing normal Cardiovascular: regular rate and rhythym, edema (left lower extremity edema extending to thigh) Respiratory: no respiratory distress Gastrointestinal: normoactive bowel sounds, soft, non-tender abdomen Skin: warm Neurologic: AAOx3 Psychiatric: interacting appropriately, not anxious, not encephalopathic Lymph, Heme, Immunologic: No petechiae Lab Data & Imaging Review 12/31/17 16:55 Assessment & Plan Assessment: #Extensive LLE DVT (deep venous thrombosis) extending into the IVC filter (Acute ) #LLE swelling due to the DVT #Tetraplegia #Wheelchair bound #Neurogenic bladder/bowel #Suprapubic Hawkins Plan: IV Heparin NPO at midnight Thrombolysis with IR tomorrow He will need lifelong AC. He does not want to be on Warfarin Bowel regime
[2017-12-31 18:53] LABS: PLATELET COUNT 250 10^3/uL (150-400)
[2017-12-31 19:15] LABS: INR 1.27 (0.83-1.16); PROTIME(PATIENT) 16.1 SEC (12.0-15.0)
[2017-12-31] MEDS ORDERED: LORATADINE PO PRN (20:22)
[2017-12-31] MEDS ORDERED: PSEUDOEPHEDRINE PO PRN (20:22)
[2017-12-31] MEDS ORDERED: guaiFENesin/CODEINE PHOS 10 ML UDCUP PO PRN (20:22)
[2017-12-31] MEDS ORDERED: DIMETHICONE TP PRN (20:22)
[2017-12-31] MEDS: DOCUSATE SODIUM 100 MG CAP PO SCH (22:57)
[2017-12-31] MEDS: QUEtiapine FUMARATE 50 MG TAB PO SCH (22:57)
[2017-12-31] MEDS: BACLOFEN 10 MG TAB PO SCH (22:58)
[2017-12-31] MEDS: AMITRIPTYLINE HCL 10 MG TAB PO SCH (22:58)
[2017-12-31] MEDS ORDERED: NS 1,000 ML IV SCH (23:15)
[2017-12-31] MEDS: diphenhydrAMINE 25 MG CAP PO PRN (23:29)
--- NOTE | 2018-01-01 05:24 | PDMN ---
Medical Necessity Medical necessity: Pt meets IP criteria per MD; est los >2 mn for eval/tx of extensive LLE DVT; admit for further monitoring, thrombolysis, IV Heparin, IV pain meds & IVFs; hx quadriplegia, cdiff, neurogenic bladder/bowel & chronic suprapubic hawkins; per H&P & order 12/31/17
[2018-01-01] MEDS: BACLOFEN 10 MG TAB PO SCH ×3 (05:31→20:23)
[2018-01-01 06:16] LABS: PLATELET COUNT 210 10^3/uL (150-400)
[2018-01-01] MEDS: ONDANSETRON 4 MG/2 ML VIAL IVP PRN ×2 (06:33→21:16)
[2018-01-01] MEDS ORDERED: Herbals/Supplements -Info Only PO SCH (09:00)
[2018-01-01] MEDS: QUEtiapine FUMARATE 50 MG TAB PO SCH ×2 (09:34→21:05)
[2018-01-01] MEDS: ASCORBIC ACID 500 MG TAB PO SCH (09:34)
[2018-01-01] MEDS: FUROSEMIDE 20 MG TAB PO SCH (09:34)
[2018-01-01] MEDS: SERTRALINE HCL 100 MG TAB PO SCH (09:35)
--- NOTE | 2018-01-01 10:19 | HOSPPROG ---
Hospitalist Progress Note Assessment/Plan: 37 yo M w quadriplegia, january thurner w L iliac vein stent here w recurrent LLE DVT DVT: has filter and previous dvt, iliac stent IR consulted for catheter directed thrombolysis on hepain GTT limb well perfused no resp distress h/o cdiff: noted, not on abx quadriplegia: air mattress PT and OT nephrolithiasis: no sx, follow urinary retention: has foly proph: anticoagulated dispo: inpt Subjective: case d/w dr stacy. wishes to proceed w catheter directed thrombolysis Objective: Vital Signs Temp Pulse Resp BP Pulse Ox 36.6 C 71 18 117/76 95 01/01/18 04:50 01/01/18 04:50 01/01/18 04:50 01/01/18 04:50 01/01/18 04:50 Laboratory Results 01/01/18 06:08 01/01/18 06:08 12/31/17 01/01/18 01/02/18 05:59 05:59 05:59 Intake Total 690 Output Total 850 Balance -850 690 PT 16.1 SEC (12.0-15.0) H 12/31/17 16:55 INR 1.27 (0.83-1.16) H 12/31/17 16:55 - Physical Exam Constitutional: no apparent distress, appears nourished Eyes: PERRL, anicteric sclera Ears, Nose, Mouth, Throat: moist mucous membranes, hearing normal Cardiovascular: regular rate and rhythym, no murmur, rub, or gallop Respiratory: no respiratory distress, no rales or rhonchi Gastrointestinal: normoactive bowel sounds, soft, non-tender abdomen Genitourinary: no bladder fullness, hawkins in urethra Skin: warm, normal color, mottled Musculoskeletal: other (LLE edema), No full muscle strength Neurologic: AAOx3, sensation intact bilaterally ICD10 Worksheet Patient Problems: Problems Problem Status Onset DVT (deep venous thrombosis) Acute Paraplegia Acute C. difficile diarrhea Acute 10/30/14 Headache Acute Hydronephrosis of right kidney Acute Kidney stone Acute UTI (urinary tract infection) Acute
[2018-01-01] MEDS: HEPARIN 10,000 UNIT/10 ML MDV (1,000 UNIT/ML) IVP PRN (11:02)
[2018-01-01] MEDS: BISACODYL 10 MG SUPP PR SCH (13:15)
[2018-01-01] MEDS ORDERED: GLUCAGON HCL 1 MG VIAL IVP PRN (14:44)
[2018-01-01] MEDS ORDERED: FLUMAZENIL 0.5 MG/5 ML MDV IVP PRN (14:44)
[2018-01-01] MEDS ORDERED: MEPERIDINE 25 MG/ML SYR IVP PRN (14:44)
[2018-01-01] MEDS ORDERED: HEPARIN 10,000 UNIT/10 ML MDV (1,000 UNIT/ML) IVP PRN (14:44)
[2018-01-01] MEDS ORDERED: PROTAMINE SULFATE 50 MG/5 ML VIAL IVP PRN (14:44)
[2018-01-01] MEDS ORDERED: NALOXONE HCL 0.4 MG/ML INJ IVP PRN (14:44)
[2018-01-01] MEDS ORDERED: MIDAZOLAM 2 MG/2 ML VIAL IVP PRN (14:44)
[2018-01-01] MEDS ORDERED: fentaNYL 100 MCG/2 ML INJ IVP PRN (14:44)
[2018-01-01] MEDS ORDERED: ALTEPLASE 2 MG VIAL IVP PRN (14:44)
--- NOTE | 2018-01-01 15:27 | PDGENHP ---
History & Physical Chief Complaint: LLE edema History of Present Illness: H/o extensive DVT, May Thurner, quadraplegia. Thrombolysis, left CIV stenting in 2014. Discontinued OAC last year. P/w leg edema since last Friday. Imaging shows iliofemoropopliteal occlusive thrombus with non occlusive extension to cava below IVC filter. Pt agreeable to CDT today via left popliteal access. Relevant Physical Exam: assym lle edema, good pulses, no skin changes Cardiorespiratory Assessment: rrr, nl wob
--- NOTE | 2018-01-01 15:29 | PDPROPOC ---
Sedation Plan of Care ASA Classification: ASA 3 Planned drugs: fentanyl, midazolam Mallampati Score: Class 2 Mallampati Reference Image:
[2018-01-01] MEDS ORDERED: IOPAMIDOL (ISOVUE-300) 100 ML BTL ONE (16:08)
[2018-01-01] MEDS ORDERED: LIDOCAINE 1% 300 MG/30 ML SDV ONE (16:09)
[2018-01-01] MEDS ORDERED: ALTEPLASE 5 MG in NS 100 ML IV ONE (18:00)
--- NOTE | 2018-01-01 18:09 | PDRADPN ---
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 Acutely thrombosed L common femoral vein accessed antegrade. Easy traversal of iliofemoral thrombosis c/w acute clot. Clot extends well into the cava and into filter cone. A 23cm EKOS thrombolysis catheter was placed across iliocaval segments and tPa initiated at 0.5 mg/hr. Inf/Abcess present in the surg proc area at time of surgery?: No EBL: Minimal Complications: none
[2018-01-01] MEDS ORDERED: HEPARIN/DEXTROSE 500 ML IV SCH (19:00)
[2018-01-01 19:50] LABS: PLATELET COUNT 209 10^3/uL (150-400)
[2018-01-01] MEDS: DOCUSATE SODIUM 100 MG CAP PO SCH (21:00)
[2018-01-01] MEDS: AMITRIPTYLINE HCL 10 MG TAB PO SCH (21:05)
[2018-01-02] MEDS: BACLOFEN 10 MG TAB PO SCH ×5 (00:08→20:44)
[2018-01-02] MEDS: ALTEPLASE 5 MG in NS 100 ML IV SCH ×2 (00:22→12:24)
[2018-01-02] MEDS: diphenhydrAMINE 25 MG CAP PO PRN ×2 (02:28→20:44)
[2018-01-02 06:55] LABS: PLATELET COUNT 214 10^3/uL (150-400)
--- NOTE | 2018-01-02 09:46 | ASMTCASEMG ---
Living Arrangements What is your living Answers: Alone arrangement? Who do you live with? Type Of Residence What kind of residence do Answers: Apartment you live in? Discharge Plan Comments Coordination Status Comments Notes: Patient is a 37yo single male who was admitted for a left leg DVT. Patient has a hx of standing quadriplegia from prior cervical injury and is wheelchair bound. Patient's initial symptom was left leg swelling. No orders for therapies currently. D/C plan TBD. CM will follow. Date Signed: 01/02/2018 09:45 AM Electronically Signed By:Zoe Waters LCSW
[2018-01-02] MEDS: SERTRALINE HCL 100 MG TAB PO SCH (10:09)
[2018-01-02] MEDS: FUROSEMIDE 20 MG TAB PO SCH (10:16)
[2018-01-02] MEDS: QUEtiapine FUMARATE 50 MG TAB PO SCH ×2 (10:18→20:44)
[2018-01-02] MEDS: ASCORBIC ACID 500 MG TAB PO SCH (10:18)
[2018-01-02] MEDS: BISACODYL 10 MG SUPP PR SCH (10:19)
[2018-01-02] MEDS ORDERED: MEPERIDINE 25 MG/ML SYR IVP PRN (16:21)
[2018-01-02] MEDS ORDERED: HEPARIN 10,000 UNIT/10 ML MDV (1,000 UNIT/ML) IVP PRN (16:21)
[2018-01-02] MEDS ORDERED: ALTEPLASE 2 MG VIAL IVP PRN (16:21)
[2018-01-02] MEDS ORDERED: MIDAZOLAM 2 MG/2 ML VIAL IVP PRN (16:21)
[2018-01-02] MEDS ORDERED: GLUCAGON HCL 1 MG VIAL IVP PRN (16:21)
[2018-01-02] MEDS ORDERED: fentaNYL 100 MCG/2 ML INJ IVP PRN (16:21)
[2018-01-02] MEDS ORDERED: NALOXONE HCL 0.4 MG/ML INJ IVP PRN (16:21)
[2018-01-02] MEDS ORDERED: FLUMAZENIL 0.5 MG/5 ML MDV IVP PRN (16:21)
[2018-01-02] MEDS ORDERED: PROTAMINE SULFATE 50 MG/5 ML VIAL IVP PRN (16:21)
[2018-01-02] MEDS ORDERED: FLUMAZENIL 0.5 MG/5 ML MDV IVP ONE (16:24)
[2018-01-02] MEDS ORDERED: NALOXONE HCL 0.4 MG/ML INJ ONE (16:24)
[2018-01-02] MEDS ORDERED: fentaNYL 100 MCG/2 ML INJ ONE (16:25)
[2018-01-02] MEDS ORDERED: MIDAZOLAM 2 MG/2 ML VIAL ONE (16:25)
--- NOTE | 2018-01-02 16:43 | HOSPPROG ---
Hospitalist Progress Note Assessment/Plan: 37 yo M w quadriplegia, may thurner w L iliac vein stent here w recurrent LLE DVT DVT: has filter and previous dvt, iliac stent IR consulted for catheter directed thrombolysis on hepain GTT limb well perfused no resp distress h/o cdiff: noted, not on abx quadriplegia: air mattress PT and OT nephrolithiasis: no sx, follow urinary retention: has foly proph: anticoagulated dispo: inpt Subjective: IN IR for catheter thrombectomy, unable to be seen by me Objective: Vital Signs Temp Pulse Resp BP Pulse Ox 37.3 C 62 15 101/52 L 95 01/02/18 02:03 01/02/18 05:59 01/02/18 05:59 01/02/18 05:59 01/02/18 05:59 Laboratory Results 01/02/18 04:20 01/01/18 19:42 01/01/18 01/02/18 01/03/18 05:59 05:59 05:59 Intake Total 2650 Output Total 850 2050 750 Balance -850 600 -750 PT 16.1 SEC (12.0-15.0) H 12/31/17 16:55 INR 1.27 (0.83-1.16) H 12/31/17 16:55 ICD10 Worksheet Patient Problems: Problems Problem Status Onset DVT (deep venous thrombosis) Acute Paraplegia Acute C. difficile diarrhea Acute 10/30/14 Headache Acute Hydronephrosis of right kidney Acute Kidney stone Acute UTI (urinary tract infection) Acute
--- NOTE | 2018-01-02 18:13 | PDRADPN ---
Radiology Procedure Note Date of Procedure: 01/02/18 Radiologist: Adela eTna Anesthesia: IV Sedation Pre-op Diagnosis: LLE DVT Post-op Diagnosis: same Indication: TPA lysis follow up Procedure: venogram and angioplasty Finding(s): Continued moderate amount of clot in iliocaval vessels. There is antegrade flow. Inf/Abcess present in the surg proc area at time of surgery?: No Complications: none
[2018-01-02] MEDS: AMITRIPTYLINE HCL 10 MG TAB PO SCH (20:45)
[2018-01-02] MEDS: DOCUSATE SODIUM 100 MG CAP PO SCH (20:45)
[2018-01-02] MEDS ORDERED: ZOLPIDEM TARTRATE 5 MG TAB PO ONE (23:32)
[2018-01-03] MEDS: ALTEPLASE 5 MG in NS 100 ML IV SCH ×2 (00:12→09:53)
[2018-01-03] MEDS: BACLOFEN 10 MG TAB PO SCH ×4 (05:54→21:23)
[2018-01-03] MEDS: BISACODYL 10 MG SUPP PR SCH (09:15)
[2018-01-03] MEDS: FUROSEMIDE 20 MG TAB PO SCH ×2 (09:15→09:49)
[2018-01-03] MEDS: ASCORBIC ACID 500 MG TAB PO SCH ×2 (09:15→09:49)
[2018-01-03] MEDS: QUEtiapine FUMARATE 50 MG TAB PO SCH ×3 (09:16→21:22)
[2018-01-03] MEDS: SERTRALINE HCL 100 MG TAB PO SCH ×2 (09:16→09:49)
[2018-01-03] MEDS: ONDANSETRON 4 MG/2 ML VIAL IVP PRN (10:19)
--- NOTE | 2018-01-03 11:20 | PDINTPN ---
Drain [employer] Progress Note Assessment/Plan: Assessment/plan: 37 M quadraplegic with hx DVT, IVC filter found to have acute DVT up to filter so treated with lytics. Initial response only partial. Also with migraines, muscle spasticity. * DVT- remains on TPA therefore needs to remain flat and avoid NSIADs (he requested). Back to IR today for additional look. Will need intermediate frame tender anticoagulation plan * Spasticity- should be able to use his usual home regimen unless contraindicated by TPA. Discussed with Mom and patient in detail at bedside. * Migraine- resolved 01/03/18 11:20 Subjective: complaining about timing of meds, Objective: Vital Signs Temp Pulse Resp BP Pulse Ox 36.8 C 65 18 124/64 H 96 01/03/18 08:00 01/03/18 08:00 01/03/18 08:00 01/03/18 08:00 01/03/18 08:00 Laboratory Results 01/02/18 04:20 01/01/18 19:42 01/02/18 01/03/18 01/04/18 05:59 05:59 05:59 Intake Total 2650 985 Output Total 2050 2300 Balance 600 -1315 PT 16.1 SEC (12.0-15.0) H 12/31/17 16:55 INR 1.27 (0.83-1.16) H 12/31/17 16:55 Physical Exam - Physical Exam General Appearance: alert, no apparent distress EENT: PERRL/EOMI Neck: supple Respiratory: lungs clear, normal breath sounds, No respiratory distress, No accessory muscle use Cardiac/Chest: regular rate, rhythm, No edema Abdomen: non-tender, soft, No distended Skin: normal color, warm/dry, No cyanosis Lymphatic: no adenopathy Extremities: No pedal edema Neuro/Psych: alert, normal mood/affect, oriented x 3 ICD10 Worksheet Patient Problems: Problems Problem Status Onset DVT (deep venous thrombosis) Acute Paraplegia Acute C. difficile diarrhea Acute 10/30/14 Headache Acute Hydronephrosis of right kidney Acute Kidney stone Acute UTI (urinary tract infection) Acute
--- NOTE | 2018-01-03 11:47 | HOSPPROG ---
Hospitalist Progress Note Assessment/Plan: 37 yo M w quadriplegia, january thurner w L iliac vein stent here w recurrent LLE DVT DVT: has filter and previous dvt, iliac stent IR in midst of catheter directed thrombolysis fibrinogen OK on hepain GTT limb well perfused no resp distress refulx: add famotidine h/o cdiff: noted, not on abx quadriplegia: air mattress PT and OT nephrolithiasis: no sx, follow urinary retention: has foly proph: anticoagulated dispo: inpt Subjective: case d/w dr stephenson. plan to return to IR today Objective: Vital Signs Temp Pulse Resp BP Pulse Ox 36.8 C 80 14 113/65 95 01/03/18 08:00 01/03/18 10:00 01/03/18 10:00 01/03/18 10:00 01/03/18 10:00 Laboratory Results 01/02/18 04:20 01/01/18 19:42 01/02/18 01/03/18 01/04/18 05:59 05:59 05:59 Intake Total 2650 985 Output Total 2050 2300 Balance 600 -1315 PT 16.1 SEC (12.0-15.0) H 12/31/17 16:55 INR 1.27 (0.83-1.16) H 12/31/17 16:55 - Physical Exam Constitutional: no apparent distress, appears nourished Eyes: PERRL, anicteric sclera Ears, Nose, Mouth, Throat: hearing normal, no oral mucosal ulcers Cardiovascular: regular rate and rhythym, no murmur, rub, or gallop Respiratory: no respiratory distress, no rales or rhonchi Gastrointestinal: normoactive bowel sounds, soft, non-tender abdomen Genitourinary: No hawkins in urethra Skin: warm, normal color Musculoskeletal: No full muscle strength Neurologic: AAOx3 ICD10 Worksheet Patient Problems: Problems Problem Status Onset DVT (deep venous thrombosis) Acute Paraplegia Acute C. difficile diarrhea Acute 10/30/14 Headache Acute Hydronephrosis of right kidney Acute Kidney stone Acute UTI (urinary tract infection) Acute
[2018-01-03] MEDS: FAMOTIDINE 20 MG/NACL 50 ML IV SCH ×2 (12:02→21:11)
[2018-01-03] MEDS ORDERED: NALOXONE HCL 0.4 MG/ML INJ ONE (12:12)
[2018-01-03] MEDS ORDERED: FLUMAZENIL 0.5 MG/5 ML MDV IVP ONE (12:12)
[2018-01-03] MEDS ORDERED: MIDAZOLAM 2 MG/2 ML VIAL ONE (12:12)
[2018-01-03] MEDS ORDERED: fentaNYL 100 MCG/2 ML INJ ONE (12:12)
[2018-01-03] MEDS ORDERED: GLUCAGON HCL 1 MG VIAL IVP PRN (12:15)
[2018-01-03] MEDS ORDERED: FLUMAZENIL 0.5 MG/5 ML MDV IVP PRN (12:15)
[2018-01-03] MEDS ORDERED: PROTAMINE SULFATE 50 MG/5 ML VIAL IVP PRN (12:15)
[2018-01-03] MEDS ORDERED: ALTEPLASE 2 MG VIAL IVP PRN (12:15)
[2018-01-03] MEDS ORDERED: MEPERIDINE 25 MG/ML SYR IVP PRN (12:15)
[2018-01-03] MEDS ORDERED: MIDAZOLAM 2 MG/2 ML VIAL IVP PRN (12:15)
[2018-01-03] MEDS ORDERED: fentaNYL 100 MCG/2 ML INJ IVP PRN (12:15)
[2018-01-03] MEDS ORDERED: NALOXONE HCL 0.4 MG/ML INJ IVP PRN (12:15)
[2018-01-03] MEDS ORDERED: HEPARIN 10,000 UNIT/10 ML MDV (1,000 UNIT/ML) IVP PRN (12:15)
[2018-01-03] MEDS ORDERED: IOPAMIDOL (ISOVUE-300) 100 ML BTL ONE (13:26)
[2018-01-03] MEDS ORDERED: ATROPINE SULFATE 1 MG/ML VIAL ONE (14:05)
[2018-01-03] MEDS: HEPARIN/DEXTROSE 500 ML IV SCH (14:37)
--- NOTE | 2018-01-03 14:58 | PDRADPN ---
Radiology Procedure Note Date of Procedure: 01/03/18 Radiologist: Anjel Sotomayor Anesthesia: IV Sedation Pre-op Diagnosis: f/u thrombolysis Post-op Diagnosis: same Indication: leg edema, extensive DVT Procedure: angioplasty, mechanical thrombectomy, stenting Finding(s): extensive residual thrombus in cava and left CIV following 48hrs tPa thrombolysis. Nearly occlusive residulal luminal clot at the IVC-CIV junction after thorough venoplasty and angioject thrombectomy. Luminal patency restored after 14mm x 6cm stent placement within CIV at IVC junction. Flow remains quite slow 2/2 poor femoral inflow. Inf/Abcess present in the surg proc area at time of surgery?: No EBL: Minimal Complications: none
[2018-01-03] MEDS: DOCUSATE SODIUM 100 MG CAP PO SCH (21:22)
[2018-01-03] MEDS: FAMOTIDINE 20 MG TAB PO SCH (21:23)
[2018-01-03] MEDS: AMITRIPTYLINE HCL 10 MG TAB PO SCH (21:23)
[2018-01-04] MEDS: HEPARIN/DEXTROSE 500 ML IV SCH ×2 (04:21→16:35)
[2018-01-04] MEDS: BACLOFEN 10 MG TAB PO SCH ×4 (05:37→21:07)
[2018-01-04] MEDS ORDERED: POLYETHYLENE GLYCOL 3350 17 GM PKT PO PRN (07:23)
[2018-01-04] MEDS ORDERED: MAGNESIUM HYDROXIDE 30 ML UDCUP PO PRN (07:23)
[2018-01-04] MEDS ORDERED: LACTULOSE 20 GM/30 ML UDCUP PO PRN (07:23)
[2018-01-04] MEDS ORDERED: MAGNESIUM CITRATE 300 ML BOTTLE PO ONE (07:24)
[2018-01-04] MEDS: BISACODYL 10 MG SUPP PR SCH (07:36)
[2018-01-04] MEDS: QUEtiapine FUMARATE 50 MG TAB PO SCH ×2 (08:46→21:07)
[2018-01-04] MEDS: SERTRALINE HCL 100 MG TAB PO SCH (08:47)
[2018-01-04] MEDS: FAMOTIDINE 20 MG TAB PO SCH ×2 (08:47→21:07)
[2018-01-04] MEDS: ASCORBIC ACID 500 MG TAB PO SCH (08:47)
[2018-01-04] MEDS: FUROSEMIDE 20 MG TAB PO SCH (08:47)
[2018-01-04] MEDS: ONDANSETRON 4 MG/2 ML VIAL IVP PRN ×2 (09:13→13:53)
--- NOTE | 2018-01-04 09:34 | PDINTPN ---
Executive Advisor Progress Note Assessment/Plan: Assessment/plan: 37 M quadraplegic with hx DVT, IVC filter found to have acute DVT up to filter so treated with lytics. Initial response only partial. Also with migraines, muscle spasticity. * DVT- additional thrombus noted and angioplasty performed. Not clear about next step but will discuss today on rounds * Spasticity- should be able to use his usual home regimen unless contraindicated by TPA. Discussed with Mom and patient in detail at bedside. * Migraine- resolved Subjective: IR notes reviewed. No events Objective: Vital Signs Temp Pulse Resp BP Pulse Ox 36.7 C 116 H 18 88/63 L 98 01/04/18 07:48 01/04/18 07:48 01/04/18 07:48 01/04/18 07:48 01/04/18 07:48 Laboratory Results 01/02/18 04:20 01/01/18 19:42 01/03/18 01/04/18 01/05/18 05:59 05:59 05:59 Intake Total 985 1899 Output Total 2300 2750 Balance -1315 -851 PT 16.1 SEC (12.0-15.0) H 12/31/17 16:55 INR 1.27 (0.83-1.16) H 12/31/17 16:55 Physical Exam - Physical Exam General Appearance: alert, no apparent distress EENT: PERRL/EOMI Neck: supple Respiratory: lungs clear, normal breath sounds, No respiratory distress, No accessory muscle use Cardiac/Chest: regular rate, rhythm, No edema Abdomen: non-tender, soft, No distended Skin: normal color, warm/dry, No cyanosis Extremities: No pedal edema Neuro/Psych: alert, normal mood/affect, oriented x 3 ICD10 Worksheet Patient Problems: Problems Problem Status Onset DVT (deep venous thrombosis) Acute Paraplegia Acute C. difficile diarrhea Acute 10/30/14 Headache Acute Hydronephrosis of right kidney Acute Kidney stone Acute UTI (urinary tract infection) Acute
[2018-01-04] MEDS ORDERED: HEPARIN 10,000 UNIT/10 ML MDV (1,000 UNIT/ML) IVP PRN (10:49)
[2018-01-04] MEDS ORDERED: PEG 3350/NA SULF,BICARB,CL/KCL (GAVILYTE-G) 4000 ML BTL PO ONE (11:50)
--- NOTE | 2018-01-04 12:04 | HOSPPROG ---
Hospitalist Progress Note Assessment/Plan: 37 yo M w quadriplegia, january thurner w L iliac vein stent here w recurrent LLE DVT DVT: has filter and previous dvt, iliac stent IR in midst of catheter directed thrombolysis fibrinogen OK on hepain GTT limb well perfused no resp distress common iliac stent placed continue heparin gtt while here refusing warfarin as outpt, so will start DOAc on dc constipation: anxious about not having gone considerable discussion- will start golytely prep- advised to stop once hes had BM refulx: add famotidine h/o cdiff: noted, not on abx quadriplegia: air mattress PT and OT nephrolithiasis: no sx, follow urinary retention: has foly proph: anticoagulated dispo: inpt Subjective: case d/w dr stephenson Objective: Vital Signs Temp Pulse Resp BP Pulse Ox 36.7 C 88 24 H 97/57 L 98 01/04/18 07:48 01/04/18 09:51 01/04/18 09:51 01/04/18 09:51 01/04/18 09:51 Laboratory Results 01/02/18 04:20 01/01/18 19:42 01/03/18 01/04/18 01/05/18 05:59 05:59 05:59 Intake Total 985 1899 Output Total 2300 2750 Balance -1315 -851 PT 16.1 SEC (12.0-15.0) H 12/31/17 16:55 INR 1.27 (0.83-1.16) H 12/31/17 16:55 - Physical Exam Constitutional: no apparent distress, appears nourished Eyes: PERRL, anicteric sclera Ears, Nose, Mouth, Throat: moist mucous membranes, hearing normal Cardiovascular: regular rate and rhythym, no murmur, rub, or gallop Respiratory: no respiratory distress, no rales or rhonchi Gastrointestinal: normoactive bowel sounds, soft, non-tender abdomen Genitourinary: no bladder fullness, No hawkins in urethra Skin: warm, normal color Musculoskeletal: full muscle strength, no muscle tenderness Neurologic: AAOx3 ICD10 Worksheet Patient Problems: Problems Problem Status Onset DVT (deep venous thrombosis) Acute Paraplegia Acute C. difficile diarrhea Acute 10/30/14 Headache Acute Hydronephrosis of right kidney Acute Kidney stone Acute UTI (urinary tract infection) Acute
[2018-01-04] MEDS ORDERED: IOPAMIDOL (ISOVUE-300) 100 ML BTL ONE (14:16)
[2018-01-04] MEDS ORDERED: LIDOCAINE 1% 300 MG/30 ML SDV ONE (14:16)
[2018-01-04] MEDS: AMITRIPTYLINE HCL 10 MG TAB PO SCH (21:07)
[2018-01-04] MEDS: DOCUSATE SODIUM 100 MG CAP PO SCH (21:50)
[2018-01-05] MEDS: BACLOFEN 10 MG TAB PO SCH ×2 (06:01→13:44)
[2018-01-05] MEDS: HEPARIN/DEXTROSE 500 ML IV SCH (06:02)
[2018-01-05 08:40] VITALS: BP 123/67
[2018-01-05] MEDS ORDERED: BISACODYL 10 MG SUPP PR SCH (09:00)
--- NOTE | 2018-01-05 09:43 | ASMTCMCOM ---
CM Note CM Note Notes: Patient has Medicare/Medicaid Ins. Medicaid pays for his medications. Medicaid will pay for coumadin as a blood thinner. Any other anticoagulant needs prior authorization through Medicaid Provider# [phone] or [phone]. Patient's Medicaid # [id number], 80. Patient 's pharmacy is [facility] at [address] [phone]. Date Signed: 01/05/2018 09:43 AM Electronically Signed By:Yuly Antoine LCSW
[2018-01-05] MEDS: QUEtiapine FUMARATE 50 MG TAB PO SCH (09:48)
[2018-01-05] MEDS: ASCORBIC ACID 500 MG TAB PO SCH (09:48)
[2018-01-05] MEDS: FAMOTIDINE 20 MG TAB PO SCH (09:49)
[2018-01-05] MEDS: SERTRALINE HCL 100 MG TAB PO SCH (09:49)
[2018-01-05] MEDS: FUROSEMIDE 20 MG TAB PO SCH (09:49)
--- NOTE | 2018-01-05 13:13 | GDS ---
[f rep st] DISCHARGE SUMMARY DISCHARGE DIAGNOSES: 1. Extensive deep vein thrombosis, status post catheter-directed thrombolysis and common iliac stent placement. 2. Constipation. 3. History of reflux. 4. History of Clostridium difficile. 5. History of quadriplegia. 6. Nephrolithiasis. 7. Urinary retention. CONSULTANTS: Dr. Hawley, Interventional Radiology. HOSPITAL COURSE STATED BY PROBLEM: DVT: The patient presented to the hospital on 12/31/2017, whe re he was found to have a large DVT. He subsequently underwent a venogram with iliac stent placement on 01/02/2018. He was placed in the ICU where he received catheter-directed thrombolysis. His hosp ital course has been relatively uncomplicated. It was prolonged due to constipation. The patient pr eviously has not been able to tolerate warfarin. He will be discharged on Eliquis. He was given a 3 0-day voucher to have this medication filled. He plans to follow up with his primary care provider t o further discuss anticoagulation. PHYSICAL EXAM: VITAL SIGNS: On day of discharge, blood pressure 128/67, pulse 101, respiratory rate 19, O2 saturation 90% on 1 L, temperature afebrile. GENERAL: No acute distress. HEART: S1, S2. LUNGS: Clear. EXTREMITIES: Minimal edema. PROCEDURES DONE THIS HOSPITAL STAY: Venogram with catheter-directed thrombolysis started on 01/02/20. Repeat venogram done 01/02/2018 with mechanical thrombectomy and balloon venoplasty. A 14 mm x 6 cm self-expanding stent was deployed across the iliac caval junction due to refractory stenosis on 01/03/2018. DISCHARGE MEDICATIONS: Please refer to Saisei for full details. Below is a preliminary list. New medications on hospital discharge: Eliquis 10 mg p.o. b.i.d. for 1 week, then 5 mg p.o. b.i.d. t hereafter. DISCHARGE INSTRUCTIONS: The patient will be discharged from the hospital where he should follow up w ith his primary care provider in the next week. He understands the risks of bleeding on blood thinne rs. /[id number]/MODL
--- NOTE | 2018-01-05 15:18 | ASDISCHSUM ---
Discharge Information Plan Status:Home with No Needs Medically Cleared to Leave:01/05/2018 Discharge Date:01/05/2018 CM D/C Disposition:Home, Routine, Self-Care ADT D/C Disposition: Projected Discharge Date:01/05/2018 04:00 PM Transportation at D/C:Family Discharge Delay Reason: Follow-Up Date:01/05/2018 04:00 PM Discharge Slot: Final Diagnosis:L leg DVT Placement Information Patient Contact Information Contact Name:LAKE Relationship:Father Address: Work Phone: City:[place] Alternate Phone: [facility]/[address] Code:[place] Email: Financial Information Financial Class:Medicare Primary Plan Desc:MEDICARE INPATIENT Primary Plan Number:[id number] Secondary Plan Desc:MED[place] Secondary Plan Number:[id number] Assessment Information [facility] Initial CM Assessment Living Arrangements What is your living Answers: Alone arrangement? Who do you live with? Type Of Residence What kind of residence do Answers: Apartment you live in? Discharge Plan Comments Coordination Status Comments Notes: Patient is a 37yo single male who was admitted for a left leg DVT. Patient has a hx of standing quadriplegia from prior cervical injury and is wheelchair bound. Patient's initial symptom was left leg swelling. No orders for therapies currently. D/C plan TBD. CM will follow. Date Signed: 01/02/2018 09:45 AM Electronically Signed By:Zoe Waters LCSW [facility] CM Progress Note CM Note CM Note Notes: Patient has Medicare/Medicaid Ins. Medicaid pays for his medications. Medicaid will pay for coumadin as a blood thinner. Any other anticoagulant needs prior authorization through Medicaid Provider# [phone] or [phone]. Patient's Medicaid # [id number], 80. Patient 's [facility] is [facility] at [address] [place] [address] . Date Signed: 01/05/2018 09:43 AM Electronically Signed By:Yuly Antoine LCSW Case Management Discharge Plan Note Case Management Discharge Discharge Order Complete? Answers: Yes Patient to Obtain Answers: via Family Medications Transportation Arranged Answers: Family/Friends Transport will Pick (Date 01/05/2018 04:00 PM & Time) Family Notified Answers: Yes Notes: Mother to transport Discharge Comments Notes: Patient has been discharged home. He plans to follow up at [facility]. he also plans to talk to his PCP regarding Eliquis as a new anticoagulant. He has [facility] for [employer] assist during the day and evening. Date Signed: 01/05/2018 03:16 PM Electronically Signed By:uYly Antoine LCSW Intervention Information
== END 2018-01-05 15:20 | disposition home or self-care (01) | DRG 270 ==
LOC: OBSVTOIN 18:31 → F3E 20:23 → F1N 21:40 → F2N 01-01 15:36
PROVIDERS: ADMIT Family Medicine; ATTEND Internal Medicine
PROC: 02HV33Z Insertion of Infusion Device into Superior Vena Cava, Percutaneous Approach (ICD-10-PCS; principal; 2018-01-01)
PROC: 3E03317 Introduction of Other Thrombolytic into Peripheral Vein, Percutaneous Approach (ICD-10-PCS; principal; 2018-01-01)
PROC: 06CD3ZZ Extirpation of Matter from Left Common Iliac Vein, Percutaneous Approach (ICD-10-PCS; 2018-01-03)
PROC: 067D3DZ Dilation of Left Common Iliac Vein with Intraluminal Device, Percutaneous Approach (ICD-10-PCS; 2018-01-03)
PROC: 06CD3ZZ Extirpation of Matter from Left Common Iliac Vein, Percutaneous Approach (ICD-10-PCS; 2018-01-05)
PROC: 067D3DZ Dilation of Left Common Iliac Vein with Intraluminal Device, Percutaneous Approach (ICD-10-PCS; 2018-01-05)
DX: I82.492 Acute embolism and thrombosis of other specified deep vein of left lower extremity (principal); G82.50 Quadriplegia, unspecified; K59.2 Neurogenic bowel, not elsewhere classified; N31.9 Neuromuscular dysfunction of bladder, unspecified; K59.00 Constipation, unspecified; G43.909 Migraine, unspecified, not intractable, without status migrainosus; Z99.3 Dependence on wheelchair; Z86.718 Personal history of other venous thrombosis and embolism; Z87.440 Personal history of urinary (tract) infections; Z87.442 Personal history of urinary calculi; Z96.0 Presence of urogenital implants
CPT/HCPCS: 85520-90; C1725; C1757; C1769; C1876; C1894; J0461; J1200; J1644; J2250; J2270; J2310; J2405; J2997; J3010; Q9967

== ENCOUNTER → 2017-12-31 | Outpatient (CLI) | payer OTHER, MEDICAID | LOC: BMCIMAGING 13:53 | PROVIDERS: ATTEND Internal Medicine | DX: I82.422 Acute embolism and thrombosis of left iliac vein (principal); I82.412 Acute embolism and thrombosis of left femoral vein; G82.50 Quadriplegia, unspecified; Z99.3 Dependence on wheelchair ==

== ENCOUNTER 2018-05-27 13:47 | Inpatient (IN) | payer OTHER, MEDICAID ==
--- NOTE | 2018-05-27 14:00 | EDPHY ---
HPI/HX/ROS/PE/MDM - Data Points Imaging: I viewed and interpreted images myself Narrative: CHIEF COMPLAINT: Fever, nausea, chills HPI: The patient is an anticoagulated (Eliquis) 37 y/o male with a history of C5-6 quadriplegia, sepsis, UTI with pseudomonas, and a DVT complaining of fever, nausea, and chills onset 3 days ago. He states that he had a mild cough for the first 2 days, which has since improved. As the nausea and fever have not improved, he decided to present to the emergency department. He does not believe he has a UTI, as he normally has leg spasms when he develops a UTI and he has not noticed any changes in his urine. No headache, chest pain, shortness of breath, abdominal pain, urinary or bowel complaints. REVIEW OF SYSTEMS: Aside from elements discussed in the HPI, a comprehensive 10 system review of systems is otherwise negative. PMH: C5-6 quadriplegic, sepsis (2009), UTI- pseudomonas (2013), kidney stones, neurogenic bladder with chronic hawkins, C. difficile (2009), , IVC filter (2009) , left leg DVT (December 2017). SOCIAL HISTORY: Lives in [facility] PHYSICAL EXAM: General: Patient is alert, in no acute distress. ENT: Eyes are normal to inspection. ENT inspection normal. Neck: Normal inspection. Full range of motion. Respiratory: No respiratory distress. Breath sounds normal bilaterally. Cardiovascular: Regular rate and rhythm. Strong peripheral pulses. Normal cap refill. Abdomen: The abdomen is nontender to palpation. There are no peritoneal signs. There are normal bowel sounds. Back: Normal to inspection. No tenderness to palpation. Skin: Normal color. No rash. Warm and dry. Extremities: Chronic changes of extremities secondary to paralysis Neuro: Oriented x3. Normal motor function. Normal sensory function. (Shane Bravo) ED Course: 1436: I reviewed patient's chest x-ray which reveals no acute findings; radiologist reading still pending. 1459: Patient kindly declines urine testing since he knows he will be positive, but believes that urinary is not causing his fever since he has no spasms and does not feel like previous UTI/sepsis. (Shane Bravo) MDM: 4:45 p.m. we discussed the test results thus far. The patient continues to have a fever. Respiratory panel and chest x-ray were normal. He suspected a primary respiratory symptom. He has not had any new urinary symptoms but he does have an indwelling catheter. He states that it always looks dirty when it is checked. We will take a sample the for cultures. He is declining antibiotics until cultures return. He is well-appearing and has stable vital signs. He would prefer to go home. We will discharge him and asking to follow up in 24 hr for recheck. 5:45 p.m. the patient's fever is elevated again. He is not feeling well. He does not wish to go home. We will admit and start antibiotics. He is agreeable to this. He is allergic to cephalosporins. During his most recent admission for UTIs he was on Zosyn. I will start this. I discussed the case with Dr. Camarena who will admit the medical service. (Destin Mohr) - Data Points Laboratory Results: Laboratory Results 05/27/18 14:15 05/27/18 14:15 Medications Given: Acetaminophen (Tylenol) 650 mg PO Q4HRS PRN PRN Reason: Pain, Mild/Fever, Can Take PO Stop: 11/23/18 20:27 Last Admin: 05/28/18 08:55 Dose: 650 mg Amitriptyline HCl (Elavil) 10 mg PO HS K[facility]TA Stop: 11/23/18 20:59 Last Admin: 05/27/18 21:15 Dose: 10 mg Apixaban (Eliquis) 5 mg PO BID [facility]TA Stop: 11/23/18 20:59 Last Admin: 05/28/18 08:02 Dose: 5 mg Ascorbic Acid (Vitamin C) 1,000 mg PO DAILY [facility] Stop: 11/24/18 08:59 Last Admin: 05/28/18 08:01 Dose: 1,000 mg Baclofen (Baclofen) 15 mg PO QID [facility] Stop: 11/23/18 20:59 Last Admin: 05/28/18 06:29 Dose: 15 mg Diazepam (Valium) 5 mg PO HS PRN PRN Reason: Spasms Stop: 11/23/18 23:12 Last Admin: 05/28/18 00:45 Dose: 5 mg Docusate Sodium (Colace) 100 mg PO HS [facility] Stop: 11/23/18 20:59 Last Admin: 05/27/18 20:43 Dose: 100 mg Furosemide (Lasix) 20 mg PO DAILY [facility] Stop: 11/24/18 08:59 Last Admin: 05/28/18 08:02 Dose: 20 mg Gabapentin (Neurontin) 100 mg PO TID [facility] Stop: 11/23/18 21:59 Last Admin: 05/28/18 08:01 Dose: 100 mg Piperacillin/Tazobactam/Dextrose (Zosyn 3.375 Gm (Premix)) 50 mls @ 100 mls/hr IV Q6H [place]TA PRN Reason: Protocol Stop: 06/27/18 00:59 Last Admin: 05/28/18 06:29 Dose: 50 mls Oxybutynin Chloride (Ditropan Xl) 5 mg PO DAILY [facility] Stop: 11/24/18 08:59 Last Admin: 05/28/18 08:02 Dose: 5 mg Quetiapine Fumarate (Seroquel) 50 mg PO BID [facility] Stop: 11/23/18 20:59 Last Admin: 05/28/18 08:01 Dose: 50 mg Sertraline HCl (Zoloft) 100 mg PO HS [facility] Stop: 11/23/18 20:59 Last Admin: 05/27/18 20:44 Dose: 100 mg Discontinued Medications Acetaminophen (Tylenol) 1,000 mg PO ONCE ONE Stop: 05/27/18 18:34 Last Admin: 05/27/18 18:33 Dose: 1,000 mg Piperacillin/Tazobactam/Dextrose (Zosyn 3.375 Gm (Premix)) 50 mls @ 100 mls/hr IV EDNOW ONE PRN Reason: Protocol Stop: 05/27/18 18:36 Last Admin: 05/27/18 18:57 Dose: 50 mls Sodium Chloride (Ns) 1,000 mls @ 0 mls/hr IV EDNOW ONE; Wide Open PRN Reason: Protocol Stop: 05/27/18 18:35 Last Admin: 05/27/18 18:55 Dose: 1,000 mls Ibuprofen (Motrin) 600 mg PO ONCE ONE Stop: 05/27/18 18:36 Last Admin: 05/27/18 18:54 Dose: 600 mg Ondansetron HCl (Zofran) 4 mg IVP EDNOW ONE Stop: 05/27/18 18:16 Last Admin: 05/27/18 18:32 Dose: 4 mg Microbiology Results: MICROBIOLOGY 05/27/18 14:50 Nasal, Sinus - Swab Respiratory Panel (PCR) - Final No Organism Detected General Initial Vital Signs: Initial Vital Signs Temperature (C) 38.2 C 05/27/18 13:48 Heart Rate 99 05/27/18 13:48 Respiratory Rate 16 05/27/18 13:48 Blood Pressure 118/81 H 05/27/18 13:48 O2 Sat (%) 93 05/27/18 13:48 O2 Delivery Mode Room Air Allergies/Adverse Reactions: ceftazidime Allergy (Severe, Verified 05/27/18 19:41) Other-Enter Comments UNKNOWN ABX Allergy (Uncoded 05/07/17 18:18) Home Medications: Medication Instructions Recorded Baclofen [Baclofen 10 mg (*)] 15 mg PO QID 07/21/14 Docusate Sodium 100 mg PO HS 07/21/14 QUEtiapine FUMARATE [Seroquel 50 50 mg PO BID 07/21/14 mg (*)] Sertraline HCl [Zoloft 100mg (*)] 100 mg PO HS 07/21/14 Furosemide [Lasix 20 MG (*)] 20 mg PO DAILY 30 Days tab 11/25/14 Ascorbic Acid [Vitamin C 500 mg 1,000 mg PO DAILY 06/08/15 (*)] Bisacodyl [Magic Bullet 10 mg] 10 mg NC DAILY 06/08/15 Dimethicone [Remedy Dimethicone] 1 herman TP TID PRN 06/08/15 Loratadine/Pseudoephedrine 1 each PO DAILY PRN 06/08/15 [Claritin-D 24 Hour Tablet] Amitriptyline HCl [Elavil 10 mg 10 mg PO HS 10/29/17 (*)] Herbals/Supplements -Info Only 1 ea PO DAILY 12/31/17 Apixaban [Eliquis] 5 mg PO BID 05/27/18 Gabapentin [Neurontin 100 MG (*)] 100 mg PO TID 05/27/18 Midodrine HCl 5 mg PO DAILY PRN 05/27/18 Oxybutynin Chloride [Oxybutynin 5 mg PO DAILY 05/27/18 Chloride Er] Departure - Departure Disposition: [facility] Inpatient Acute Clinical Impression: Paraplegia, Fever, UTI (urinary tract infection) Condition: Fair Report Scribed for: Shane Bravo Report Scribed by: Jaylene Servin Date of Report: 05/27/18 Time of Report: 13:59 Physician Review and Approval Statement: Portions of this note were transcribed by an ED scribe. I personally performed the history, physical exam, and medical decision making; and confirm the accuracy of the information in the transcribed note.
[2018-05-27 14:28] LABS: PLATELET COUNT 148 10^3/uL (150-400)
[2018-05-27] MEDS ORDERED: IBUPROFEN 600 MG TAB PO ONE ×2 (17:46→18:35)
[2018-05-27] MEDS ORDERED: PIPERACILLIN/TAZO 3.375 GM/DEX 50 ML IV ONE (18:07)
[2018-05-27] MEDS ORDERED: ONDANSETRON 4 MG/2 ML VIAL IVP ONE (18:15)
[2018-05-27] MEDS ORDERED: ACETAMINOPHEN 500 MG TAB ONE (18:16)
[2018-05-27] MEDS ORDERED: ACETAMINOPHEN 500 MG TAB PO ONE (18:33)
[2018-05-27] MEDS ORDERED: NS 1,000 ML IV ONE (18:34)
[2018-05-27] MEDS ORDERED: ONDANSETRON DISINTEGRATING 4 MG TAB PO PRN (20:28)
[2018-05-27] MEDS ORDERED: PROMETHAZINE HCL 25 MG/ML INJ IVP PRN (20:28)
[2018-05-27] MEDS ORDERED: ONDANSETRON 4 MG/2 ML VIAL IVP PRN (20:28)
[2018-05-27] MEDS ORDERED: IBUPROFEN 200 MG TAB PO PRN (20:28)
[2018-05-27] MEDS ORDERED: HYDROCODONE/APAP 5/325 TAB PO PRN (20:28)
[2018-05-27] MEDS ORDERED: PSEUDOEPHEDRINE HCL 120 MG EXT REL TAB PO PRN (20:30)
[2018-05-27] MEDS ORDERED: CETIRIZINE 10 MG TAB PO PRN (20:30)
[2018-05-27] MEDS ORDERED: DIMETHICONE TP PRN (20:30)
[2018-05-27] MEDS ORDERED: MIDODRINE HCL 5 MG TAB PO PRN (20:30)
[2018-05-27] MEDS: DOCUSATE SODIUM 100 MG CAP PO SCH (20:43)
[2018-05-27] MEDS: APIXABAN 5 MG TAB PO SCH (20:44)
[2018-05-27] MEDS: BACLOFEN 10 MG TAB PO SCH (20:44)
[2018-05-27] MEDS: GABAPENTIN 100 MG CAP PO SCH (20:44)
[2018-05-27] MEDS: SERTRALINE HCL 100 MG TAB PO SCH (20:44)
[2018-05-27] MEDS: QUEtiapine FUMARATE 50 MG TAB PO SCH (20:44)
[2018-05-27] MEDS: AMITRIPTYLINE HCL 10 MG TAB PO SCH (21:15)
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
[2018-05-28] MEDS: DIAZEPAM 5 MG TAB PO PRN (00:45)
[2018-05-28] MEDS: PIPERACILLIN/TAZO 3.375 GM/DEX 50 ML IV SCH ×3 (00:46→12:44)
[2018-05-28] MEDS: ACETAMINOPHEN 325 MG TAB PO PRN ×4 (04:36→17:30)
[2018-05-28 05:39] LABS: PLATELET COUNT 118 10^3/uL (150-400)
[2018-05-28] MEDS: BACLOFEN 10 MG TAB PO SCH ×4 (06:29→21:47)
[2018-05-28] MEDS: QUEtiapine FUMARATE 50 MG TAB PO SCH ×2 (08:01→21:45)
[2018-05-28] MEDS: ASCORBIC ACID 500 MG TAB PO SCH (08:01)
[2018-05-28] MEDS: GABAPENTIN 100 MG CAP PO SCH ×3 (08:01→21:45)
[2018-05-28] MEDS: OXYBUTYNIN 5 MG EXT REL TAB PO SCH (08:02)
[2018-05-28] MEDS: APIXABAN 5 MG TAB PO SCH ×2 (08:02→21:46)
[2018-05-28] MEDS: FUROSEMIDE 20 MG TAB PO SCH (08:02)
[2018-05-28] MEDS ORDERED: BISACODYL 10 MG SUPP PR SCH (09:00)
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
--- NOTE | 2018-05-28 12:34 | PDMN ---
Medical Necessity Medical necessity: Change to IP, as of 05/27/18, per & MCG M-300; los >2 mn for ongoing management of catheter associated UTI w/sepsis (fevers & elevated WBC); requiring further monitoring, ID consult & IV abx; hx neurogenic bladder w /chronic suprapubic catheter, C5 quadriplegia, DVT, May-Thurner syndrome, IVC filter, complicated UTIs
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
[2018-05-28] MEDS: oxyCODONE IR 5 MG TAB PO PRN (17:42)
[2018-05-28] MEDS ORDERED: NS BOLUS 1000 ML (Wide open) IV ONE (18:30)
[2018-05-28] MEDS: PIPERACILLIN/TAZO 4.5 GM/DEX 100 ML IV SCH (18:51)
[2018-05-28] MEDS ORDERED: NS 1,000 ML IV ONE (19:00)
[2018-05-28] MEDS ORDERED: ZOLPIDEM TARTRATE 5 MG TAB PO ONE (21:00)
[2018-05-28] MEDS: PROBIOTIC PO SCH (21:44)
[2018-05-28] MEDS: POLYETHYLENE GLYCOL 3350 17 GM PKT PO SCH (21:44)
[2018-05-28] MEDS: SERTRALINE HCL 100 MG TAB PO SCH (21:46)
[2018-05-28] MEDS: AMITRIPTYLINE HCL 10 MG TAB PO SCH (21:46)
[2018-05-28] MEDS: DOCUSATE SODIUM 100 MG CAP PO SCH (21:46)
[2018-05-29] MEDS: NS 1,000 ML IV SCH (00:04)
[2018-05-29] MEDS: PIPERACILLIN/TAZO 4.5 GM/DEX 100 ML IV SCH ×5 (00:04→23:26)
[2018-05-29] MEDS: ACETAMINOPHEN 325 MG TAB PO PRN ×4 (04:29→22:01)
[2018-05-29] MEDS: GABAPENTIN 100 MG CAP PO SCH ×3 (05:10→21:47)
[2018-05-29] MEDS: BACLOFEN 10 MG TAB PO SCH ×4 (05:10→21:47)
[2018-05-29] MEDS: ASCORBIC ACID 500 MG TAB PO SCH (08:33)
[2018-05-29] MEDS: APIXABAN 5 MG TAB PO SCH ×2 (08:33→21:47)
[2018-05-29] MEDS: OXYBUTYNIN 5 MG EXT REL TAB PO SCH (08:33)
[2018-05-29] MEDS: FUROSEMIDE 20 MG TAB PO SCH (08:33)
[2018-05-29] MEDS: QUEtiapine FUMARATE 50 MG TAB PO SCH ×2 (08:33→21:47)
[2018-05-29] MEDS: BISACODYL 10 MG SUPP PR SCH (10:26)
--- NOTE | 2018-05-29 11:00 | PCMIDPN ---
Assessment/Plan: # Febrile illness likely related to complicated UTI, blood cultures are negative , urine culture is polymicrobial which is not entirely unexpected with chronic indwelling suprapubic. Group B strep was identified and there are a couple other gram-negative rods that are being worked up. Patient feels clinically improved today. Interestingly, he did have a fever last night prior to increased dose of Zosyn. --continue to monitor on high-dose Zosyn --I held off on placing a PICC line, in case organisms could be treated with p.o. Antibiotics --history of nephrolithiasis, repeat CT today to assess if has recurred --blood cultures were repeated overnight with fever --I called microbiology to assure workup of multiple organisms in urine culture # history of carbapenem resistant Pseudomonas; history of stenotrophomonas - both 3 years ago. Okay to remain off contact isolation at this point Medication Zosyn 4.5 g IV Q 6, # 1 Microbiology 05/27/18 UCx: Gram Neg Giovanni [employer]; Strep Agalactiae Group B Two Halma Types 05/27/18 Blood culture (2) no growth today Subjective: Reports he feels much improved today, no abdominal pain, no bladder spasm, no rash Objective: Vital Signs Temp Pulse Resp BP Pulse Ox 37.3 C 77 16 105/69 96 05/29/18 04:00 05/29/18 04:00 05/29/18 04:00 05/29/18 04:00 05/29/18 04:00 Laboratory Results 05/28/18 05:20 05/28/18 05:20 05/28/18 05/29/18 05/30/18 05:59 05:59 05:59 Intake Total 1500 3243 Output Total 3250 3555 Balance -0819 -1221 - Physical Exam General Appearance: alert, no apparent distress Respiratory: lungs clear, No accessory muscle use Neck: full range of motion, supple Cardiac/Chest: regular rate, rhythm Extremities: other (Wasting and contractures of all 4 extremities consistent with quadriplegia), No pedal edema Male Genitalia: other (Suprapubic catheter with no abnormalities at insertion site) Skin: No diaphoresis, No jaundice, No rash Neuro/Psych: alert, normal mood/affect, oriented x 3 - Time Spent With Patient Time Spent with Patient: greater than 25 minutes (Care coordinated with nurse at bedside.) Time Spent with Patient: Greater than 25 minutes spent on this patients care, greater than 50% of time spent counseling, educating, and coordinating care regarding the above mentioned plan. ICD10 Worksheet Patient Problems: Problems Problem Status Onset Fever Acute Paraplegia Acute UTI (urinary tract infection) Acute C. difficile diarrhea Acute 10/30/14 DVT (deep venous thrombosis) Acute Headache Acute Hydronephrosis of right kidney Acute Kidney stone Acute
[2018-05-29] MEDS: DIAZEPAM 5 MG TAB PO PRN ×2 (12:47→22:01)
[2018-05-29] MEDS ORDERED: POLYETHYLENE GLYCOL 3350 17 GM PKT PO PRN (16:31)
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
[2018-05-29] MEDS: AMITRIPTYLINE HCL 10 MG TAB PO SCH (21:47)
[2018-05-29] MEDS: SERTRALINE HCL 100 MG TAB PO SCH (21:47)
[2018-05-29] MEDS: DOCUSATE SODIUM 100 MG CAP PO SCH (21:48)
[2018-05-29] MEDS: POLYETHYLENE GLYCOL 3350 17 GM PKT PO SCH (21:49)
[2018-05-29] MEDS: PROBIOTIC PO SCH (21:50)
[2018-05-29] MEDS: [UNRECOGNIZED DRUG - OTHER] PO SCH (22:23)
[2018-05-29] MEDS: oxyCODONE IR 5 MG TAB PO PRN (22:33)
[2018-05-30] MEDS: PIPERACILLIN/TAZO 4.5 GM/DEX 100 ML IV SCH ×4 (06:25→23:57)
[2018-05-30] MEDS: GABAPENTIN 100 MG CAP PO SCH ×3 (06:25→20:18)
[2018-05-30] MEDS: BACLOFEN 10 MG TAB PO SCH ×4 (06:26→22:00)
[2018-05-30] MEDS: ACETAMINOPHEN 325 MG TAB PO PRN ×3 (06:49→20:17)
--- NOTE | 2018-05-30 09:27 | PCMIDPN ---
Assessment/Plan: 1. Complicated polymicrobial UTI: Awaiting susceptibilities on the two Pseudomonads. Continue Zosyn as is. No new recommendations at this point in time. CT scan with very small nonobstructing calculi in the bilateral kidneys; no urgent intervention presently needed. Patient was reassured that we are doing all we can for him, and that I would not change his antibiotics at this point in time. He expressed understanding and was content with the visit. 05/30/18 09:26 Subjective: Frustrated. Tells me he had a"bad night". Frustrated about not receiving Tylenol. Had a fever to 38.2 last night. Spent time talking to him about current situation, and the fact that he has 2 different Pseudomonas species in his urine and we are waiting for susceptibilities. Explained to him that we would not change his antibiotics at this point in time and reassured him. Objective: Zosyn 4.5 g IV q.6 hours day 2 T-max 38.2 Vital Signs Temp Pulse Resp BP Pulse Ox 36.9 C 59 L 16 98/55 L 96 05/30/18 08:00 05/30/18 08:00 05/30/18 08:00 05/30/18 08:00 05/30/18 08:00 Laboratory Results 05/28/18 05:20 05/28/18 05:20 05/29/18 05/30/18 05/31/18 05:59 05:59 05:59 Intake Total 3243 4700 Output Total 4975 4650 1350 Balance -1732 50 -1350 Urine culture with Klebsiella pneumoniae susceptible to Zosyn, and 2 different Pseudomonas organisms, susceptibility pending as well as group B strep - Physical Exam General Appearance: alert, no apparent distress EENT: pharynx normal, No thrush Respiratory: lungs clear Cardiac/Chest: regular rate, rhythm Abdomen: non-tender, soft Male Genitalia: other (Suprapubic catheter in place) Skin: No rash ICD10 Worksheet Patient Problems: Problems Problem Status Onset Fever Acute Paraplegia Acute UTI (urinary tract infection) Acute C. difficile diarrhea Acute 10/30/14 DVT (deep venous thrombosis) Acute Headache Acute Hydronephrosis of right kidney Acute Kidney stone Acute
[2018-05-30] MEDS: [UNRECOGNIZED DRUG - OTHER] PO SCH ×2 (09:43→20:23)
[2018-05-30] MEDS: OXYBUTYNIN 5 MG EXT REL TAB PO SCH (09:53)
[2018-05-30] MEDS: APIXABAN 5 MG TAB PO SCH ×2 (09:53→20:18)
[2018-05-30] MEDS: ASCORBIC ACID 500 MG TAB PO SCH (09:53)
[2018-05-30] MEDS: FUROSEMIDE 20 MG TAB PO SCH (09:54)
[2018-05-30] MEDS: QUEtiapine FUMARATE 50 MG TAB PO SCH ×2 (09:54→20:18)
[2018-05-30] MEDS: NS 1,000 ML IV SCH (09:54)
[2018-05-30] MEDS: BISACODYL 10 MG SUPP PR SCH ×2 (11:37→12:40)
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
[2018-05-30] MEDS ORDERED: LORazepam 0.5 MG TAB PO PRN (14:26)
[2018-05-30] MEDS: POLYETHYLENE GLYCOL 3350 17 GM PKT PO SCH (20:17)
[2018-05-30] MEDS: SERTRALINE HCL 100 MG TAB PO SCH (20:17)
[2018-05-30] MEDS: DOCUSATE SODIUM 100 MG CAP PO SCH (20:17)
[2018-05-30] MEDS: AMITRIPTYLINE HCL 10 MG TAB PO SCH (20:18)
[2018-05-30] MEDS: PROBIOTIC PO SCH (21:59)
[2018-05-30] MEDS: ZOLPIDEM TARTRATE 5 MG TAB PO PRN (21:59)
[2018-05-31] MEDS: GABAPENTIN 100 MG CAP PO SCH ×3 (05:33→21:05)
[2018-05-31] MEDS: BACLOFEN 10 MG TAB PO SCH ×4 (05:33→21:05)
[2018-05-31] MEDS: PIPERACILLIN/TAZO 4.5 GM/DEX 100 ML IV SCH ×4 (05:33→23:53)
--- NOTE | 2018-05-31 08:13 | PCMIDPN ---
Assessment/Plan: 1. Complicated polymicrobial UTI: Awaiting susceptibilities on the two Pseudomonads. Just called [facility] and they told me that they should be back this afternoon. They will call my cell phone. Continue Zosyn as is. No new recommendations at this point in time. CT scan with very small nonobstructing calculi in the bilateral kidneys; no urgent intervention presently needed. Subjective: Patient is sound asleep with his head phones on, I did not awaken him. Talked to the patient's nurse, who told me he had a good night. He is afebrile, without any new incidence. Explained to her that we are waiting for the susceptibilities on the Pseudomonas, which should be back later today. Objective: Vital Signs Zosyn 4.5 g IV q.6 hours day 3 T-max 37 degrees Temp Pulse Resp BP Pulse Ox 36.8 C 59 L 14 107/59 L 96 05/31/18 04:00 05/31/18 04:00 05/31/18 04:00 05/31/18 04:00 05/31/18 04:00 Laboratory Results 05/28/18 05:20 05/31/18 05:15 05/30/18 05/31/18 06/01/18 05:59 05:59 05:59 Intake Total 4700 2970 Output Total 4650 5550 Balance 50 -2580 Blood cultures no growth Urine culture with Klebsiella pneumoniae, susceptible to Zosyn Group B strep, and two Pseudomonads, susceptibilities pending - Physical Exam General Appearance: other (Sleeping, with head phones on. I did not awaken him. ) ICD10 Worksheet Patient Problems: Problems Problem Status Onset Fever Acute Paraplegia Acute UTI (urinary tract infection) Acute C. difficile diarrhea Acute 10/30/14 DVT (deep venous thrombosis) Acute Headache Acute Hydronephrosis of right kidney Acute Kidney stone Acute
[2018-05-31] MEDS: ACETAMINOPHEN 325 MG TAB PO PRN (09:44)
[2018-05-31] MEDS: OXYBUTYNIN 5 MG EXT REL TAB PO SCH (09:44)
[2018-05-31] MEDS: QUEtiapine FUMARATE 50 MG TAB PO SCH ×2 (09:45→21:06)
[2018-05-31] MEDS: ASCORBIC ACID 500 MG TAB PO SCH (09:45)
[2018-05-31] MEDS: APIXABAN 5 MG TAB PO SCH ×2 (09:45→21:06)
--- NOTE | 2018-05-31 11:18 | ASMTCMCOM ---
CM Note CM Note Notes: Waiting on lab report for any changes to ABX. Should hear back this afternoon. Date Signed: 05/31/2018 11:17 AM Electronically Signed By:Yuly Antoine LCSW
[2018-05-31] MEDS: [UNRECOGNIZED DRUG - OTHER] PO SCH ×2 (11:34→21:04)
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
[2018-05-31] MEDS: BISACODYL 10 MG SUPP PR SCH (12:24)
[2018-05-31] MEDS: PROBIOTIC PO SCH (21:03)
[2018-05-31] MEDS: POLYETHYLENE GLYCOL 3350 17 GM PKT PO SCH (21:03)
[2018-05-31] MEDS: ZOLPIDEM TARTRATE 5 MG TAB PO PRN (21:06)
[2018-05-31] MEDS: DOCUSATE SODIUM 100 MG CAP PO SCH (21:06)
[2018-05-31] MEDS: AMITRIPTYLINE HCL 10 MG TAB PO SCH (21:06)
[2018-05-31] MEDS: SERTRALINE HCL 100 MG TAB PO SCH (21:06)
[2018-06-01] MEDS: PIPERACILLIN/TAZO 4.5 GM/DEX 100 ML IV SCH ×4 (06:30→23:35)
[2018-06-01] MEDS: GABAPENTIN 100 MG CAP PO SCH ×3 (06:31→21:06)
[2018-06-01] MEDS: BACLOFEN 10 MG TAB PO SCH ×4 (06:31→21:03)
[2018-06-01] MEDS: QUEtiapine FUMARATE 50 MG TAB PO SCH ×2 (08:01→20:01)
[2018-06-01] MEDS: APIXABAN 5 MG TAB PO SCH ×2 (08:02→20:02)
[2018-06-01] MEDS: OXYBUTYNIN 5 MG EXT REL TAB PO SCH (08:02)
[2018-06-01] MEDS: ASCORBIC ACID 500 MG TAB PO SCH (08:02)
[2018-06-01] MEDS: BISACODYL 10 MG SUPP PR SCH (08:05)
[2018-06-01] MEDS: [UNRECOGNIZED DRUG - OTHER] PO SCH ×2 (08:07→20:01)
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
[2018-06-01] MEDS: ACETAMINOPHEN 325 MG TAB PO PRN (12:36)
--- NOTE | 2018-06-01 14:06 | PCMIDPN ---
Assessment/Plan: Assessment: urinary tract infection - in patient with underlying spinal cord injury. Chronic catheterization. Currently being managed with IV Zosyn. His urine culture shows polymicrobial contamination which is expected. He also has a carbapenem resistant Pseudomonas within this colonization. This does not change the plan of IV Zosyn for total of 7 days. Plan: 1. IV Zosyn for 7 days. 2. follow clinical course. 06/01/18 14:03 Subjective: Patient is in very good spirits. No new complaints. Feels overall better from admission. No rash. No fevers or chills. Objective: Zosyn # 4 Vital Signs Temp Pulse Resp BP Pulse Ox 36.6 C 73 16 112/72 93 06/01/18 10:51 06/01/18 10:51 06/01/18 10:51 06/01/18 10:51 06/01/18 10:51 Laboratory Results 05/28/18 05:20 05/31/18 05:15 05/31/18 06/01/18 06/02/18 05:59 05:59 05:59 Intake Total 2970 1200 Output Total 5550 3300 1400 Balance -2580 -2100 -1400 - Physical Exam General Appearance: WD/WN, alert, no apparent distress, non-toxic Cardiac/Chest: regular rate, rhythm, No tachycardia Skin: normal color, warm/dry, No rash Neuro/Psych: alert, normal mood/affect, oriented x 3 ICD10 Worksheet Patient Problems: Problems Problem Status Onset Fever Acute Paraplegia Acute UTI (urinary tract infection) Acute C. difficile diarrhea Acute 10/30/14 DVT (deep venous thrombosis) Acute Headache Acute Hydronephrosis of right kidney Acute Kidney stone Acute
[2018-06-01] MEDS: DOCUSATE SODIUM 100 MG CAP PO SCH (20:01)
[2018-06-01] MEDS: SERTRALINE HCL 100 MG TAB PO SCH (20:01)
[2018-06-01] MEDS: AMITRIPTYLINE HCL 10 MG TAB PO SCH (20:02)
[2018-06-01] MEDS: POLYETHYLENE GLYCOL 3350 17 GM PKT PO SCH (20:06)
[2018-06-01] MEDS: PROBIOTIC PO SCH (21:02)
[2018-06-01] MEDS: ZOLPIDEM TARTRATE 5 MG TAB PO PRN (21:04)
[2018-06-02] MEDS: ACETAMINOPHEN 325 MG TAB PO PRN ×2 (02:33→20:11)
[2018-06-02] MEDS: PIPERACILLIN/TAZO 4.5 GM/DEX 100 ML IV SCH ×3 (05:31→17:41)
[2018-06-02] MEDS: BACLOFEN 10 MG TAB PO SCH ×4 (05:31→21:55)
[2018-06-02] MEDS: GABAPENTIN 100 MG CAP PO SCH ×3 (05:31→21:55)
[2018-06-02] MEDS: BISACODYL 10 MG SUPP PR SCH (07:51)
[2018-06-02] MEDS: APIXABAN 5 MG TAB PO SCH ×2 (09:40→20:05)
[2018-06-02] MEDS: OXYBUTYNIN 5 MG EXT REL TAB PO SCH (09:40)
[2018-06-02] MEDS: ASCORBIC ACID 500 MG TAB PO SCH (09:41)
[2018-06-02] MEDS: QUEtiapine FUMARATE 50 MG TAB PO SCH ×2 (09:41→20:05)
[2018-06-02] MEDS: [UNRECOGNIZED DRUG - OTHER] PO SCH ×2 (09:45→20:05)
--- NOTE | 2018-06-02 10:05 | ASMTCMCOM ---
CM Note CM Note Notes: Pts case discussed w/ Dr. Noe. Pt will continue to get ivabx during his stay at the hospital. Pt will most likely d/c independent without any needs. CM available for changes. Plan: Independent Date Signed: 06/02/2018 10:04 AM Electronically Signed By:JUVENTINO Wetzel
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
--- NOTE | 2018-06-02 13:35 | PCMIDPN ---
Assessment/Plan: # Febrile illness likely related to complicated UTI, blood cultures are negative , urine culture is polymicrobial which is not entirely unexpected with chronic indwelling suprapubic. Fever resolved, feeling much better. Symptom resolution seemed to be timed with increase dose of Zosyn for coverage of PsA --plan high dose Zosyn as inpatient through 06/04 Medication Zosyn 4.5 g IV Q 6, #5 (stop 06/04) Microbiology 05/27/18 UCx: GBS, PsA -carbapenem R, Klebsiella 05/27/18 Blood culture (2) neg Subjective: feeling well stool a little softer but not bothersome no rash no breathing difficulties Objective: Vital Signs Temp Pulse Resp BP Pulse Ox 36.5 C 54 L 17 117/64 94 06/02/18 11:36 06/02/18 11:36 06/02/18 11:36 06/02/18 11:36 06/02/18 11:36 Laboratory Results 05/28/18 05:20 05/31/18 05:15 06/01/18 06/02/18 06/03/18 05:59 05:59 05:59 Intake Total 1200 1950 400 Output Total 3300 4400 1925 Balance -2100 -2450 -1525 - Physical Exam General Appearance: alert, no apparent distress EENT: No thrush Respiratory: lungs clear, No accessory muscle use Neck: supple Cardiac/Chest: regular rate, rhythm Extremities: pedal edema (mild) Abdomen: normal bowel sounds, non-tender, soft Male Genitalia: other (suprapubic cath insertion site c/d/i) Skin: warm/dry, No diaphoresis, No rash Neuro/Psych: alert, normal mood/affect - Time Spent With Patient Time Spent with Patient: greater than 25 minutes (care coordinated with Dr. Mercado) Time Spent with Patient: Greater than 25 minutes spent on this patients care, greater than 50% of time spent counseling, educating, and coordinating care regarding the above mentioned plan. ICD10 Worksheet Patient Problems: Problems Problem Status Onset Fever Acute Paraplegia Acute UTI (urinary tract infection) Acute C. difficile diarrhea Acute 10/30/14 DVT (deep venous thrombosis) Acute Headache Acute Hydronephrosis of right kidney Acute Kidney stone Acute
[2018-06-02] MEDS: DOCUSATE SODIUM 100 MG CAP PO SCH (19:53)
[2018-06-02] MEDS: AMITRIPTYLINE HCL 10 MG TAB PO SCH (20:05)
[2018-06-02] MEDS: SERTRALINE HCL 100 MG TAB PO SCH (20:05)
[2018-06-02] MEDS: PROBIOTIC PO SCH (20:12)
[2018-06-02] MEDS: POLYETHYLENE GLYCOL 3350 17 GM PKT PO SCH (20:15)
[2018-06-02] MEDS: ZOLPIDEM TARTRATE 5 MG TAB PO PRN (21:54)
[2018-06-03] MEDS: PIPERACILLIN/TAZO 4.5 GM/DEX 100 ML IV SCH ×5 (00:02→23:41)
[2018-06-03] MEDS: BACLOFEN 10 MG TAB PO SCH ×4 (05:50→21:14)
[2018-06-03] MEDS: GABAPENTIN 100 MG CAP PO SCH ×3 (05:50→21:13)
[2018-06-03] MEDS: APIXABAN 5 MG TAB PO SCH ×2 (08:31→21:13)
[2018-06-03] MEDS: ASCORBIC ACID 500 MG TAB PO SCH (08:32)
[2018-06-03] MEDS: QUEtiapine FUMARATE 50 MG TAB PO SCH ×2 (08:33→21:13)
[2018-06-03] MEDS: OXYBUTYNIN 5 MG EXT REL TAB PO SCH (08:33)
[2018-06-03] MEDS: BISACODYL 10 MG SUPP PR SCH (08:34)
[2018-06-03] MEDS: [UNRECOGNIZED DRUG - OTHER] PO SCH ×2 (10:00→21:18)
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
--- NOTE | 2018-06-03 17:35 | PCMIDPN ---
Assessment/Plan: # Febrile illness likely related to complicated UTI, blood cultures are negative , urine culture is polymicrobial which is not entirely unexpected with chronic indwelling suprapubic. Fever resolved, feeling much better. Symptom resolution seemed to be timed with increase dose of Zosyn for coverage of PsA --plan high dose Zosyn as inpatient through 06/04, okay to dc at noon --no ID f/u needed Medication Zosyn 4.5 g IV Q 6, #6 (stop 06/04) Microbiology 05/27/18 UCx: GBS, PsA -carbapenem R, Klebsiella 05/27/18 Blood culture (2) neg Time 15 min >50% time spent reviewing therapy, course of illness, planned prevention Subjective: no bladder spasms no chills feeling well Objective: Vital Signs Temp Pulse Resp BP Pulse Ox 36.6 C 60 19 95/58 L 93 06/03/18 16:00 06/03/18 16:00 06/03/18 16:00 06/03/18 16:00 06/03/18 16:00 Microbiology 05/28/18 19:48 Blood Culture - Final Blood 05/28/18 18:40 Blood Culture - Final Blood Laboratory Results 05/28/18 05:20 05/31/18 05:15 06/02/18 06/03/18 06/04/18 05:59 05:59 05:59 Intake Total 1950 900 Output Total 4400 4600 1200 Balance -2450 -3700 -1200 - Physical Exam General Appearance: alert, no apparent distress Respiratory: No accessory muscle use Skin: No rash Neuro/Psych: alert, normal mood/affect, oriented x 3 ICD10 Worksheet Patient Problems: Problems Problem Status Onset Fever Acute Paraplegia Acute UTI (urinary tract infection) Acute C. difficile diarrhea Acute 10/30/14 DVT (deep venous thrombosis) Acute Headache Acute Hydronephrosis of right kidney Acute Kidney stone Acute
[2018-06-03] MEDS: ZOLPIDEM TARTRATE 5 MG TAB PO PRN (21:13)
[2018-06-03] MEDS: SERTRALINE HCL 100 MG TAB PO SCH (21:13)
[2018-06-03] MEDS: AMITRIPTYLINE HCL 10 MG TAB PO SCH (21:13)
[2018-06-03] MEDS: POLYETHYLENE GLYCOL 3350 17 GM PKT PO SCH (21:15)
[2018-06-03] MEDS: DOCUSATE SODIUM 100 MG CAP PO SCH (21:15)
[2018-06-03] MEDS: PROBIOTIC PO SCH (21:19)
[2018-06-04] MEDS: BACLOFEN 10 MG TAB PO SCH (06:02)
[2018-06-04] MEDS: PIPERACILLIN/TAZO 4.5 GM/DEX 100 ML IV SCH ×2 (06:02→11:06)
[2018-06-04] MEDS: GABAPENTIN 100 MG CAP PO SCH (06:02)
[2018-06-04 07:01] VITALS: BP 140/85
[2018-06-04] MEDS: BISACODYL 10 MG SUPP PR SCH (07:39)
[2018-06-04] MEDS: OXYBUTYNIN 5 MG EXT REL TAB PO SCH (09:25)
[2018-06-04] MEDS: QUEtiapine FUMARATE 50 MG TAB PO SCH (09:25)
[2018-06-04] MEDS: [UNRECOGNIZED DRUG - OTHER] PO SCH (09:25)
[2018-06-04] MEDS: ASCORBIC ACID 500 MG TAB PO SCH (09:25)
[2018-06-04] MEDS: APIXABAN 5 MG TAB PO SCH (09:25)
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
== END 2018-06-04 12:38 | disposition home or self-care (01) | DRG 698 ==
LOC: F3E 19:50 → OBSVTOIN 20:45
PROVIDERS: ADMIT Internal Medicine; ATTEND Internal Medicine
DX: T83.518A Infection and inflammatory reaction due to other urinary catheter, initial encounter (principal); A41.9 Sepsis, unspecified organism; N39.0 Urinary tract infection, site not specified; B96.1 Klebsiella pneumoniae [K. pneumoniae] as the cause of diseases classified elsewhere; B96.5 Pseudomonas (aeruginosa) (mallei) (pseudomallei) as the cause of diseases classified elsewhere; G82.54 Quadriplegia, C5-C7 incomplete; I87.1 Compression of vein; S14.155S Other incomplete lesion at C5 level of cervical spinal cord, sequela; W16.42XS Fall into unspecified water causing other injury, sequela; N32.89 Other specified disorders of bladder; F41.9 Anxiety disorder, unspecified; K21.9 Gastro-esophageal reflux disease without esophagitis; Q98 Other sex chromosome abnormalities, male phenotype, not elsewhere classified; N31.9 Neuromuscular dysfunction of bladder, unspecified; Z79.01 Long term (current) use of anticoagulants; Z86.718 Personal history of other venous thrombosis and embolism; Z93.51 Cutaneous-vesicostomy status; Z23 Encounter for immunization
CPT/HCPCS: 96374; G0008; J2405; J2543; J2550